=== PATIENT | male | born 1980 | race Caucasian/White ===

== ENCOUNTER 2017-12-30 15:34 | Outpatient (REF) | payer SELFPAY ==
[2018-01-05 12:41] LABS: Helicobacter pylori Ag, Feces Negative (NEGAT)
== END 2017-12-30 15:54 ==
LOC: NCHCN 15:34
PROVIDERS: PCP Family Medicine; Visit Provider Family Medicine
DX: K21.9 Gastro-esophageal reflux disease without esophagitis (principal)
CPT/HCPCS: 87338

== ENCOUNTER 2018-02-17 06:56 | Emergency (ER) | payer OTHER, SELFPAY ==
[2018-02-17 07:05] VITALS: BP 163/80; PULSE 85; RESP 16; TEMP 37.1; O2SAT 97
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
[2018-02-17] MEDS: Lidocaine 5% Patch 1 PATCH TP (07:17)
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
[2018-02-17] MEDS: Dexamethasone 4 MG TAB 12 MG PO (07:24)
[2018-02-17] MEDS: Ketorolac 30 MG/ML VIAL IM (07:24)
[2018-02-17 07:26] VITALS: BP 135/70; PULSE 72; RESP 12; TEMP 36.8; O2SAT 99
== END 2018-02-17 07:29 | disposition home or self-care (01) ==
PROVIDERS: Emergency Provider Student in an Organized Health Care Education/Training Program; PCP Family Medicine
DX: M62.830 Muscle spasm of back (principal); I10 Essential (primary) hypertension; E11.9 Type 2 diabetes mellitus without complications; Z79.84 Long term (current) use of oral hypoglycemic drugs
CPT/HCPCS: 96372; 99284; J1885; J8540

== ENCOUNTER 2018-04-09 18:16 | Outpatient (REF) | payer OTHER, SELFPAY ==
[2018-04-09 18:50] LABS: HGB 15.3 g/dL (13.5-17.5); Mean Corp. HGB Concentration 33.3 g/dL (32.0-36.0); Mean Corpuscular Hemoglobin 29.5 pg (27.0-33.0); Mean Corpuscular Volume 88.6 fL (80-95); Mean Platelet Volume 12.1 fL (8.0-11.0); Platelet Count 130 x1000/uL (130-400); RBC 5.19 m/cumm (4.50-6.00); RBC Distribution Width 13.3 % (11.8-14.1); White Blood Cell Count 6.47 k/cumm (4.4-10.8)
[2018-04-09 19:03] LABS: ALT 66 U/L (12-78); AST 22 U/L (15-37); Albumin 3.7 g/dL (3.4-5.0); Alkaline Phosphatase 73 U/L (46-116); Anion Gap 13.3 mmol/L (3-11); BUN 19 mg/dL (7-18); Bilirubin, Total 0.3 mg/dL (0.2-1.0); CO2 24.7 mmol/L (21.0-32.0); CREATININE 1.15 mg/dL (0.70-1.30); Calcium 8.5 mg/dL (8.5-10.1); Chloride 104 mmol/L (98-107); Glucose 156 mg/dL (70-100); Potassium 3.1 mmol/L (3.5-5.1); Sodium 142 mmol/L (136-145); Total Protein 6.4 g/dL (6.4-8.2); Uric Acid 6.9 mg/dL (3.5-7.2)
== END 2018-04-09 18:36 ==
LOC: NCHCN 18:16
PROVIDERS: PCP Family Medicine; Visit Provider Family Medicine
DX: D69.6 Thrombocytopenia, unspecified (principal); I10 Essential (primary) hypertension; K76.0 Fatty (change of) liver, not elsewhere classified; R73.09 Other abnormal glucose; M10.9 Gout, unspecified
CPT/HCPCS: 80053; 85027; 84550

== ENCOUNTER 2019-01-12 19:31 | Emergency (ER) | payer OTHER, SELFPAY ==
[2019-01-12 19:57] VITALS: BP 162/110; PULSE 78; RESP 18; TEMP 36.9; O2SAT 95
[2019-01-12 21:15] LABS: Bilirubin Negative (Negative); Blood Negative (Negative); Clarity Clear (Clear); Glucose Negative (Negative); Ketones Negative (Negative); Leukocyte Esterase Negative (Negative); Nitrite Negative (Negative); Urobilinogen 0.2 EU/dL (Up TO 0.2); pH 6.5 (5-8)
--- NOTE | 2019-01-12 21:18 | W.ED.GENAD ---
Discharge Plan Disposition Patient Disposition: HOME Condition: Good Discharge Details Chief Complaint: Abd Prob Clinical Impression: Back pain, Abdominal pain, Ear pain, right Primary Care Provider: Ramez House ED Provider: Brady Toth Meds and New Rx's Prescriptions: Continued allopurinol 100 MG tablet 100 mg PO DAILY RF: 0 metformin 500 MG tablet extended release 24hr 500 mg PO DAILY RF: 0 amlodipine 5 mg tablet 5 mg PO DAILY RF: 0 Discharge Instructions Additional Instructions: Your work-up tonight reveals a normal urinalysis, normal laboratory studies, normal CT scan of the abdomen pelvis. A swab to test for herpes has been sent and is pending. Follow-up with primary care as planned next week. Return to ED for high fever, vomiting, worsening pain, neurologic changes, other concerns or problems. Referrals: Ramez House [Primary Care Provider] - Discharge Data Discharge Date/Time-TO BE ENTERED AT DEPARTURE: 01/12/19 23:55 Medical Decision Making Patient presenting with multiple complaints of. No evidence of URI or ear infection. Abdomen has some tenderness in the left lower quadrant suprapubic area. Consider diverticulitis given his complaint of back pain as well although I think this is musculoskeletal. Penile lesions are somewhat painful. Given the description of them coming and going in the grouping suspect herpes. I did obtain specimen for PCR testing. IV is established and Toradol given for his pain. Laboratory studies obtained. CT scan of the abdomen pelvis done. Patient has normal white count. Chemistries are fine. Liver function normal. Lipase normal. Urinalysis completely negative. CT scan of the abdomen pelvis is normal. There is no evidence of kidney or ureteral stones. No evidence of diverticulitis. No evidence of appendicitis. Patient does report back pain and myalgias seem better with the Toradol. He has follow-up with primary care next week. He is asked to keep this appointment. May use ibuprofen or Tylenol in the meantime. Return to ED if he develops high fever, worsening pain, vomiting, other concerns or problems. Lab Data Lab results reviewed: Yes I reviewed the patient's lab results. HPI General Mode of arrival: ambulatory. Date/Time Provider Initiated Documentation: 01/12/19 21:13. Limitations to Documentation: no limitations. Information obtained by: patient and RN notes reviewed. HPI Narrative: Patient presents to ED with multiple complaints. He reports right ear pain for about a day. He denies fever or other URI type symptoms. He also complains of low abdominal pain that started this morning. He continues through the day. He has decreased appetite but no nausea or vomiting. He had no difficulty urinating. He also complains of low back pain. This is worse with movement. He feels tight all over and achy. This is been present for a couple of days now. He also complains of a penile lesion which he thinks is just cut. He reports that it intermittently happens for over 10 years. Is not overly painful. He is never had it looked at before. It is not always present. Related Data Home Medications Medication Instructions Recorded Confirmed allopurinol 100 mg PO DAILY 05/07/15 01/12/19 metformin 500 mg PO DAILY 06/14/16 01/12/19 amlodipine 5 mg PO DAILY 01/12/19 01/12/19 Allergies Allergy/AdvReac Type Severity Reaction Status Date / Time No Known Allergies Allergy Unverified 01/12/19 20:11 General Stated Complaint: Abd Prob DESTINI: 3 Review of Systems Review of Systems Narrative: 01/17 Review of Systems completed and is negative except as stated above in HPI (Systems reviewed: Const, Eyes, ENT, Resp, CV, GI, , MSK, Skin, Neuro) [facility] Medical History Bipolar disorder (Chronic) Diabetes mellitus (Chronic) GERD (gastroesophageal reflux disease) (Chronic) Gout (Chronic) HTN (hypertension) (Chronic) Social History Smoking/Tobacco Use Status: Current every day Alcohol Intake: never Drug use: Occasionally Substance use type: marijuana Do you feel safe in your relationship?: Yes Exam Narrative Exam Narrative: Vitals: Afebrile here. Hypertensive otherwise normal vitals and pulse oximetry. Const: WDWN male in NAD. HEENT: NC/AT. Normal facial exam. TMs clear bilateral. OP clear. Eyes: Normal conjunctiva and sclera. Neck: Supple. Trachea midline. Lungs: Normal respiratory effort. Lungs are clear. Cor: RRR without murmur/gallop. Good radial pulses. GI: Soft and non-distended. Mild tenderness in the LLQ/suprapubic area. No guarding or rebound. : No inguinal adenopathy. No hernia. Penis with ulceration that looks like groupings of vesicles in the foreskin. No discharge. No penile swelling. No testicular or epididymal tenderness or swelling. Back: No CVAT. Mild tenderness low lumbar area. Neuro: A+O x 3. CN grossly in tact. Good strength and no focal deficit. Ext: No C/C/E. Skin: Warm and dry without rash. Course Vital Signs Vital signs: Vital Signs Temperature 98.4 F 01/12/19 19:57 Pulse 78 01/12/19 19:57 Respiratory Rate 18 01/12/19 19:57 Blood Pressure 162/110 H 01/12/19 19:57 Pulse Oximetry 95 01/12/19 19:57 Temperature 98.4 F 01/12/19 19:57 Temperature Source Temporal Artery Scan 01/12/19 19:57 Pulse 78 01/12/19 19:57 Respiratory Rate 18 01/12/19 19:57 Respiratory Effort 01/12/19 20:03 Blood Pressure 162/110 H 01/12/19 19:57 Blood Pressure Position Sitting 01/12/19 19:57 Pulse Oximetry 95 01/12/19 19:57 Oxygen Delivery Method Room Air 01/12/19 19:57 Oxygen Flow Rate 0 01/12/19 19:57 Lab/Test Results Lab/Test Results: Laboratory Tests Range/Units 01/12/19 19:20 Urine Color (Yellow) Yellow Urine Clarity (Clear) Clear Urine pH (5-8) 6.5 Ur Specific [place] (1.005-1.025) 1.020 Urine Protein (Negative) mg/dL Negative Urine Ketones (Negative) mg/dL Negative Urine Blood (Negative) Negative Urine Nitrite (Negative) Negative Urine Bilirubin (Negative) Negative Urine Urobilinogen (Up TO 0.2) EU/dL 0.2 Ur Leukocyte Esterase (Negative) Negative Urine Glucose (Negative) mg/dL Negative
[2019-01-12] MEDS: Omnipaque 350 MG/ML 100 ML BTL IJ (22:25)
--- NOTE | 2019-01-12 22:29 | DI.CT_ITS ---
EXAM: CT ABDOMEN PELVIS W CLINICAL HISTORY: low abdominal/back pain. TECHNIQUE: COMPARISON: CHEST FOR PULMONARY EMBOLUS from 04/19/2016 FINDINGS: CT examination of the abdomen and pelvis was performed with bolus infusion of 100 cc of Omnipaque 350 . Images obtained through the lung bases are unremarkable. Liver spleen and pancreas appear normal. Gallbladder and bile ducts are CT normal. Adrenals and kidneys appear normal with no evidence of u rinary tract calcification or obstruction. Abdominal aorta is of normal diameter and no major vascul ar abnormality is seen. No significant abdominal wall hernia seen. Appendix appears normal. No sarah dence of bowel obstruction or diverticulitis. IMPRESSION: Negative abdominal and pelvic CT.
[2019-01-12 22:43] LABS: Abs Immature Grans 0.01 k/cumm (0.0-0.09); Absolute Basophil Count 0.01 k/cumm (0.0-0.2); Absolute Eosinophil Count 0.12 k/cumm (0.0-0.7); Absolute Lymphocyte Count 0.92 k/cumm (1.2-3.4); Absolute Monocyte Count 0.77 k/cumm (0.11-0.7); Absolute Neutrophil Count 3.79 k/cumm (1.2-6.7); Basophils % 0.2; Eosinophils % 2.1; HCT 44.5 % (40.0-50.0); HGB 14.7 g/dL (13.5-17.5); Immature Grans % 0.2; Lymphocytes % 16.4; Mean Corpuscular Hemoglobin 28.9 pg (27.0-33.0); Mean Corpuscular Volume 87.6 fL (80-95); Mean Platelet Volume 10.6 fL (8.0-11.0); Monocytes % 13.7; Neutrophils % 67.4; RBC 5.08 m/cumm (4.50-6.00); RBC Distribution Width 12.7 % (11.8-14.1); White Blood Cell Count 5.62 k/cumm (4.4-10.8)
[2019-01-12 22:44] LABS: Platelet Count 119 x1000/uL (130-400)
[2019-01-12 23:04] LABS: ALT 33 U/L (16-63); AST 14 U/L (15-37); Albumin 3.7 g/dL (3.4-5.0); Alkaline Phosphatase 71 U/L (46-116); Anion Gap 8.6 mmol/L (3-11); BUN 13 mg/dL (7-18); Bilirubin, Total 0.6 mg/dL (0.2-1.0); CO2 26.4 mmol/L (21.0-32.0); CREATININE 1.01 mg/dL (0.70-1.30); Chloride 103 mmol/L (98-107); Glucose 104 mg/dL (70-100); Lipase 157 U/L (73-393); Potassium 3.9 mmol/L (3.5-5.1); Sodium 138 mmol/L (136-145); Total Protein 6.7 g/dL (6.4-8.2)
--- NOTE | 2019-01-12 23:16 | DI.VRAD_ITS ---
PROCEDURE INFORMATION: Exam: CT Abdomen And Pelvis With Contrast Exam date and time: 01/12/2019 9:52 PM Clinical history: 38 years old, male; Generalized; Patient HX: Low back pain and abdominal pain x weeks, worsening today. TECHNIQUE: Imaging protocol: Computed tomography of the abdomen and pelvis with intravenous contrast. Radiation optimization: All CT scans at this facility use at least one of these dose optimization techniques: automated exposure control; mA and/or kV adjustment per patient size (includes targeted exams where dose is matched to clinical indication); or iterative reconstruction. Contrast material: OMNIPAQUE 350; Contrast volume: 100 ml; Contrast route: IV; COMPARISON: CT RENAL COLIC WO CONTRAST 08/26/2015 9:47 AM FINDINGS: Liver: Normal. No mass. Gallbladder and bile ducts: Normal. No calcified stones. No ductal dilation. Pancreas: Normal. No ductal dilation. Spleen: Normal. No splenomegaly. Adrenals: Normal. No mass. Kidneys and ureters: Normal. No hydronephrosis. Stomach and bowel: Unremarkable. No obstruction. No mucosal thickening. Appendix: No evidence of appendicitis. Intraperitoneal space: Unremarkable. No free air. No significant fluid collection. Vasculature: Mild atherosclerosis. Lymph nodes: Unremarkable. No enlarged lymph nodes. Bladder: Unremarkable as visualized. Reproductive: Unremarkable as visualized. Bones/joints: Unremarkable. No acute fracture. Soft tissues: Unremarkable. IMPRESSION: No acute finding. Dictated and Authenticated by: Amina Payan MD. Ordering:MEE Abreu MD
[2019-01-12] MEDS: Lactated Ringers 1,000 ML 1000 ML IV (23:19)
[2019-01-12] MEDS: Ketorolac 30 MG/ML VIAL IVP (23:20)
[2019-01-14 14:47] LABS: HSV 1 DNA Result Negative; HSV 2 DNA Result POSITIVE; Specimen Description penile lesion
== END 2019-01-12 23:55 | disposition home or self-care (01) ==
PROVIDERS: Emergency Provider Emergency Medicine; PCP Family Medicine
DX: M54.5 Low back pain (principal); R10.30 Lower abdominal pain, unspecified; H92.01 Otalgia, right ear; N48.89 Other specified disorders of penis
CPT/HCPCS: 36415; 80053; 83690; 87529; 96361; 96374; 99285; 74177; 81003; 85025; 99284; J1885; J3490

== ENCOUNTER 2019-02-01 12:22 | Outpatient (REF) | payer OTHER, SELFPAY ==
[2019-02-01 13:22] LABS: Albumin 4.1 g/dL (3.4-5.0); Calcium 8.5 mg/dL (8.5-10.1)
[2019-02-03 06:20] LABS: Vitamin D 25 Total 15.6 ng/ml (30-100)
== END 2019-02-01 12:42 ==
LOC: NCHCN 12:22
PROVIDERS: PCP Family Medicine; Visit Provider Family Medicine
DX: E83.51 Hypocalcemia (principal)
CPT/HCPCS: 82306; 82040; 82310

== ENCOUNTER 2019-05-15 11:59 | Emergency (ER) | payer OTHER, SELFPAY ==
[2019-05-15 12:08] VITALS: BP 147/83; PULSE 68; RESP 18; TEMP 36.3; O2SAT 97
[2019-05-15 12:31] LABS: Bilirubin Negative (Negative); Blood Negative (Negative); Clarity Clear (Clear); Glucose Negative (Negative); Ketones Negative (Negative); Leukocyte Esterase Negative (Negative); Nitrite Negative (Negative); Specific Gravity 1.025 (1.005-1.025); Urobilinogen 0.2 EU/dL (Up TO 0.2); pH 5.5 (5-8)
[2019-05-15 12:46] VITALS: BP 156/86; PULSE 65; RESP 16; TEMP 36.5; O2SAT 95
--- NOTE | 2019-05-15 13:18 | ED.GENADUL_ITS ---
Discharge Plan Disposition Patient Disposition: HOME Condition: Stable Discharge Details Chief Complaint: Urinary Clinical Impression: Urinary frequency Primary Care Provider: Ramez House ED Provider: Rosa Yi Home Meds and New Rx's Prescriptions: Continued allopurinol 100 MG tablet 100 mg PO DAILY RF: 0 metformin 500 MG tablet extended release 24hr 500 mg PO DAILY RF: 0 amlodipine 5 mg tablet 5 mg PO DAILY RF: 0 Discharge Instructions Instructions: [employer]eg[employer] Exercises for Men (GEN) Additional Instructions: Drink plenty of fluids. Follow-up with your primary care doctor in 1 week for reevaluation as needed. Follow-up with urology Dr. Day if symptoms do not improve or worsen. Return to the emergency department with any worsening or new concerning symptoms. Referrals: Jimbo Day MD [ [facility] STAFF PHYSICIAN] - Discharge Data Discharge Physician: Rosa Yi Medical Decision Making 38-year-old male who presents with urinary frequency since this morning. He states he has had this issue before which was associated with alcohol use. He states he has not drank alcohol anytime recently. He denies any dysuria, hematuria, fever, vomiting, abdominal or back pain. He is sexually active with his and does not use protection and denies any known exposure to STDs. Patient had been seen here a few months back and diagnosed with herpes at that time and states this resolved with treatment. He denies any genital lesions at this time. He states he does take metformin for prediabetes or diabetes but does not check his sugar regularly. He states he was started on this a few years back by his PCP Dr. House. He does admit to polyuria at times. Patient appears nontoxic. His abdomen is soft and nontender. Normal exam. No CVA tenderness. Urinalysis negative. History and presentation not consistent with kidney stone, STD, prostatitis, UTI, epididymitis. Patient states that he has thought he has had bladder spasms in the past and discussed that this is possible. Also obtained a fingerstick glucose which was 92. Patient feels good to go home. He is advised to drink plenty of fluids and to follow-up with urology if symptoms do not improve or worsen. He is advised to return here with any concerns. Medical Records Medical records reviewed: Yes I reviewed the patient's medical records. Lab Data Lab results reviewed: Yes I reviewed the patient's lab results. Labs: Laboratory Tests Range/Units 05/15/19 12:24 Urine Color (Yellow) Yellow Urine Clarity (Clear) Clear Urine pH (5-8) 5.5 Ur Specific [place] (1.005-1.025) 1.025 Urine Protein (Negative) mg/dL Negative Urine Ketones (Negative) mg/dL Negative Urine Blood (Negative) Negative Urine Nitrite (Negative) Negative Urine Bilirubin (Negative) Negative Urine Urobilinogen (Up TO 0.2) EU/dL 0.2 Ur Leukocyte Esterase (Negative) Negative Urine Glucose (Negative) mg/dL Negative HPI General Mode of arrival: ambulatory . Date/Time Provider Initiated Documentation: 05/15/19 12:11 . Limitations to Documentation: no limitations . Information obtained by: patient . History of Present Illness 38 year old M presents to the emergency department with the chief complaint of Urinary frequency, and is localized to the genitals. Patient reports no radiation. Patient started experiencing this hour(s) (Since this morning) and it has been intermittent. No relieving factors improve symptom(s), No exacerbating factors reported . Patient notes denies fever/chills, headaches, loss of appetite, malaise, nausea/vomiting and shortness of breath. Patient did receive the following treatments prior to arrival, none Related Data Home Medications Medication Instructions Recorded Confirmed allopurinol 100 mg PO DAILY 05/07/15 05/15/19 metformin 500 mg PO DAILY 06/14/16 05/15/19 amlodipine 5 mg PO DAILY 01/12/19 05/15/19 Allergies Allergy/AdvReac Type Severity Reaction Status Date / Time No Known Allergies Allergy Unverified 05/15/19 12:15 General Stated Complaint: Urinary DESTINI: 3 Review of Systems All systems reviewed & are unremarkable except as noted in HPI and below Constitutional Constitutional: Reports as per HPI, Denies chills and Denies fever(s) Eyes Eyes: Denies blurry vision ENT Ears, Nose, Mouth, and Throat: Denies dizziness, Denies sore throat and Denies throat swelling Cardiovascular Cardiovascular: Denies chest pain and Denies dyspnea Respiratory Respiratory: Denies cough and Denies dyspnea Gastrointestinal Gastrointestinal: Denies abdominal pain, Denies diarrhea and Denies vomiting Genitourinary Genitourinary: Denies hematuria, Denies genital pain, Denies dysuria, Denies flank pain, Denies penile discharge, Denies scrotal swelling, Denies testicular mass, Denies testicular pain and Reports urinary frequency Musculoskeletal Musculoskeletal: Denies back pain and Denies numbness Integumentary/Breasts Skin/Breast: Denies lesions and Denies rash Neurologic Neurologic: Denies dizziness, Denies focal weakness and Denies numbness Allergic/Immunologic Allergic/Immunologic: Denies throat swelling [facility] Medical History Bipolar disorder (Chronic) Diabetes mellitus (Chronic) GERD (gastroesophageal reflux disease) (Chronic) Gout (Chronic) HTN (hypertension) (Chronic) Social History Smoking/Tobacco Use Status: Current every day Tobacco Type: cigarettes Alcohol Intake: never Drug use: Occasionally Substance use type: marijuana Do you feel safe in your relationship?: Yes Exam Const General: cooperative, healthy appearing and no acute distress HENMT Head: normal to inspection Face and sinus: normal facial exam Eyes General: appearance normal, both eyes and all related structures EOM: EOM intact bilaterally Neck Neck: normal visual inspection and No submandibular swelling Lymphatic: no lymphadenopathy noted Chest Chest: normal inspection of the chest and no tenderness Resp Effort & Inspection: normal respiratory effort and able to speak in complete sentences Auscultation: clear to auscultation bilaterally Cardio Rate: regular rate Rhythm: regular rhythm GI Inspection: normal to inspection Palpation: soft, not firm, not rigid and nontender Auscultation: normal bowel sounds Male General Exam: Yes normal external exam Penis: normal penis Scrotum: scrotum normal Testes: no testicular mass, no testicular swelling and no testicular tenderness Skin General skin exam: no rashes or lesions noted Neuro General: alert, awake and oriented x3 Cognition: normal cognition Speech: speech normal Motor: muscle tone normal throughout Sensory Exam: no sensory deficits noted Extrem General: normal to inspection, full ROM, normal capillary refill, no calf tenderness bilaterally and no edema Psych Appearance: grossly normal Mental Status: mental status grossly normal Speech and Movement: speech and movement normal Affect: normal affect Course Vital Signs Vital signs: Vital Signs Temperature 97.3 F L 05/15/19 12:08 Pulse 68 05/15/19 12:08 Respiratory Rate 18 05/15/19 12:08 Blood Pressure 147/83 H 05/15/19 12:08 Pulse Oximetry 97 05/15/19 12:08 Temperature 97.7 F 05/15/19 12:46 Temperature Source Skin 05/15/19 12:46 Pulse 65 05/15/19 12:46 Pulse Rhythm Regular 05/15/19 12:46 Pulse Strength Normal 05/15/19 12:46 Respiratory Rate 16 05/15/19 12:46 Respiratory Effort 05/15/19 12:46 Respiratory Depth Normal 05/15/19 12:46 Respiratory Pattern Normal 05/15/19 12:46 Blood Pressure 156/86 H 05/15/19 12:46 Blood Pressure Mean 109 05/15/19 12:46 Blood Pressure Position Supine 05/15/19 12:46 Pulse Oximetry 95 05/15/19 12:46 Oxygen Delivery Method Room Air 05/15/19 12:46 Oxygen Flow Rate 0 05/15/19 12:46 Pain Level 3 05/15/19 12:08 Lab/Test Results Lab/Test Results: Laboratory Tests Range/Units 05/15/19 12:24 Urine Color (Yellow) Yellow Urine Clarity (Clear) Clear Urine pH (5-8) 5.5 Ur Specific [place] (1.005-1.025) 1.025 Urine Protein (Negative) mg/dL Negative Urine Ketones (Negative) mg/dL Negative Urine Blood (Negative) Negative Urine Nitrite (Negative) Negative Urine Bilirubin (Negative) Negative Urine Urobilinogen (Up TO 0.2) EU/dL 0.2 Ur Leukocyte Esterase (Negative) Negative Urine Glucose (Negative) mg/dL Negative
== END 2019-05-15 13:40 | disposition home or self-care (01) ==
PROVIDERS: Emergency Provider Physician Assistant; PCP Family Medicine
DX: R35.0 Frequency of micturition (principal); E11.9 Type 2 diabetes mellitus without complications; Z79.84 Long term (current) use of oral hypoglycemic drugs; I10 Essential (primary) hypertension
CPT/HCPCS: 36416; 82962; 99282; 81003; 99283

== ENCOUNTER 2019-06-03 10:44 | Outpatient (REF) | payer OTHER, SELFPAY ==
[2019-06-03 12:23] LABS: HCT 51.2 % (40.0-50.0); HGB 17.3 g/dL (13.5-17.5); Mean Corp. HGB Concentration 33.8 g/dL (32.0-36.0); Mean Corpuscular Hemoglobin 29.2 pg (27.0-33.0); Mean Corpuscular Volume 86.3 fL (80-95); Mean Platelet Volume 11.4 fL (8.0-11.0); Platelet Count 178 x1000/uL (130-400); RBC 5.93 m/cumm (4.50-6.00); RBC Distribution Width 12.9 % (11.8-14.1); White Blood Cell Count 10.47 k/cumm (4.4-10.8)
[2019-06-03 12:41] LABS: ALT 35 U/L (16-63); AST 13 U/L (15-37); Albumin 4.7 g/dL (3.4-5.0); Alkaline Phosphatase 83 U/L (46-116); Amylase 47 U/L (25-115); Anion Gap 10.9 mmol/L (3-11); BUN 16 mg/dL (7-18); Bilirubin, Total 0.7 mg/dL (0.2-1.0); CO2 29.1 mmol/L (21.0-32.0); CREATININE 1.12 mg/dL (0.70-1.30); Calcium 9.3 mg/dL (8.5-10.1); Chloride 99 mmol/L (98-107); Glucose 93 mg/dL (74-106); Lipase 137 U/L (73-393); Potassium 3.6 mmol/L (3.5-5.1); Sodium 139 mmol/L (136-145); Total Protein 7.5 g/dL (6.4-8.2)
== END 2019-06-03 11:04 ==
LOC: NCHCN 10:44
PROVIDERS: PCP Family Medicine; Visit Provider Nurse Practitioner Family
DX: R10.9 Unspecified abdominal pain (principal)
CPT/HCPCS: 80053; 83690; 85027; 82150

== ENCOUNTER 2019-06-03 13:27 | Outpatient (CLI) | payer OTHER, SELFPAY ==
--- NOTE | 2019-06-03 | DI.CT_ITS ---
EXAM: CT ABDOMEN PELVIS W CLINICAL HISTORY: ABD PAIN ACUTE, R10.9 TECHNIQUE: Post IV and oral contrast. COMPARISON: CT ABDOMEN PELVIS W from 01/12/2019 FINDINGS: The heart size is normal. The lung bases are clear. The liver shows mild fatty infiltration. The s pleen, gallbladder, pancreas, adrenals and kidneys appear normal. The prostate and urinary bladder ap pear normal. The appendix is normal. There is no small bowel dilatation. There is a normal quantity o f stool. There is no bowel thickening or inflammatory change. No free air or free fluid is seen. Ther e is no adenopathy. The aorta is normal in diameter. IMPRESSION: Negative CT of the abdomen and pelvis.
[2019-06-03] MEDS: Omnipaque 350 MG/ML 100 ML BTL IV (13:24)
[2019-06-03] MEDS: Omnipaque 350 MG/ML 100 ML BTL 50 ML PO (13:41)
== END 2019-06-03 13:47 ==
PROVIDERS: PCP Family Medicine; Visit Provider Nurse Practitioner Family
DX: R10.9 Unspecified abdominal pain (principal); K76.0 Fatty (change of) liver, not elsewhere classified
CPT/HCPCS: 74177; J3490

== ENCOUNTER 2019-08-19 09:26 | Outpatient (CLI) | payer OTHER, SELFPAY ==
--- NOTE | 2019-08-19 | DI.RAD_ITS ---
EXAM: XR CHEST 2V PA LATERAL CLINICAL HISTORY: ATYPICAL CHEST PAIN, R07.9, SMOKER, STERNAL PAIN TECHNIQUE: 2D digital imaging was performed. COMPARISON: CR PORTABLE CHEST ONE VIEW from 04/19/2016 FINDINGS: The heart is not enlarged. The lungs are clear and well expanded. No pleural effusion seen. Mediastin al contours appear intact. IMPRESSION: Normal chest
== END 2019-08-19 09:46 ==
PROVIDERS: PCP Family Medicine; Visit Provider Family Medicine
DX: R07.89 Other chest pain (principal); F17.210 Nicotine dependence, cigarettes, uncomplicated
CPT/HCPCS: 71046

== ENCOUNTER 2019-08-30 04:30 | Emergency (ER) | payer OTHER, SELFPAY ==
[2019-08-30 04:34] VITALS: BP 147/90; PULSE 93; RESP 16; TEMP 36.9; O2SAT 95
--- NOTE | 2019-08-30 04:44 | W.ED.GENAD ---
Discharge Plan Disposition Patient Disposition: HOME Condition: Stable Discharge Details Chief Complaint: RashLesion Clinical Impression: Contact dermatitis due to plant Primary Care Provider: Ramez House ED Provider: Adis Caceres Home Meds and New Rx's Prescriptions: New prednisone 20 mg tablet 40 mg PO DAILY 6 Days Qty: 12 RF: 0 Continued ziprasidone HCl 40 mg capsule 40 mg PO BID RF: 0 sildenafil [Viagra] 50 mg tablet 50 mg PO DAILY PRNRF: 0 metformin 500 mg tablet extended release 24hr 500 mg PO DAILY RF: 0 trazodone 100 mg tablet 100 mg PO QHS RF: 0 betamethasone valerate 0.1 % ointment 1 applic TP BID PRNRF: 0 allopurinol 100 MG tablet 100 mg PO DAILY RF: 0 amlodipine 5 mg tablet 5 mg PO DAILY RF: 0 Discharge Instructions Instructions: Dermatitis (ED) Additional Instructions: You have developed a plant dermatitis, possibly due to exposure to poison [place] or [place] lace. Please take prednisone as prescribed. May continue the use of Benadryl 25 to 50 mg as needed every 6 hours for itching. Return if you develop a fever, worsening of the rash, or any other acute concern. Medical Decision Making 39-year-old male who developed an itching, blistering type rash after pulling weeds in his garden that he believes may have been [place] weed/poison [place] lace. No difficulty with swallowing, change to breathing. His exam is otherwise reassuring. He has a plant dermatitis. Will treat with systemic steroids, Benadryl as needed. He understands homecare as well as return precautions. HPI General Mode of arrival: ambulatory. Date/Time Provider Initiated Documentation: 08/30/19 04:37. Limitations to Documentation: no limitations. Information obtained by: patient. History of Present Illness 39 year old M presents to the emergency department with the chief complaint of Itching rash primarily on arms, described as moderate, Quality is described as dull and constant, and is localized to the left, right, upper extremity and lower extremity. Patient reports no radiation. and it has been constant. No relieving factors improve symptom(s), No exacerbating factors reported . Patient did receive the following treatments prior to arrival, none Related Data Home Medications Medication Instructions Recorded Confirmed allopurinol 100 mg PO DAILY 05/07/15 08/30/19 amlodipine 5 mg PO DAILY 01/12/19 08/30/19 betamethasone valerate 0.1 % 1 applic TP BID PRN 05/19/19 08/30/19 topical ointment metformin 500 mg tablet,extended 500 mg PO DAILY 05/19/19 08/30/19 release 24hr sildenafil 50 mg tablet 50 mg PO DAILY PRN 05/19/19 trazodone 100 mg tablet 100 mg PO QHS 05/19/19 08/30/19 ziprasidone HCl 40 mg capsule 40 mg PO BID 05/19/19 08/30/19 prednisone 40 mg PO DAILY 6 Days #12 tab 08/30/19 Previous Rx's Medication Instructions Recorded prednisone 40 mg PO DAILY 6 Days #12 tab 08/30/19 Allergies Allergy/AdvReac Type Severity Reaction Status Date / Time lamotrigine [From Lamictal] Allergy Unverified 05/19/19 12:40 pioglitazone Allergy Unverified 05/19/19 12:40 sertraline [From Zoloft] Allergy Unverified 05/19/19 12:40 General Stated Complaint: RashLesion DESTINI: 4 Review of Systems Narrative: 6 systems reviewed and otherwise negative [facility] Medical History Bilateral knee pain (Acute) Bipolar disorder (Chronic) Chronic low back pain (Acute) Diabetes mellitus (Chronic) GERD (gastroesophageal reflux disease) (Chronic) Gout (Chronic) Hemorrhoids (Acute) HTN (hypertension) (Chronic) Hypocalcemia (Acute) Metabolic syndrome (Acute) Nephrolithiasis (Chronic) Psoriasis (Chronic) Recurrent genital herpes simplex (Acute) Thrombocytopenia (Chronic) Social History Smoking/Tobacco Use Status: Current every day Tobacco Type: cigarettes Alcohol Intake: never Drug use: Occasionally Substance use type: marijuana Do you feel safe in your relationship?: Yes Exam Narrative Exam Narrative: GEN: awake, alert, oriented 3. Pleasant, well groomed, interactive. HEAD: Normocephalic, atraumatic EYES: PERRL, EOMI NECK: Full ROM, no SHARONDA, no menigismus CHEST/RESP: Nontender, clear to auscultation bilateral, no wheeze/rhonchi/rales CARDIOVASCULAR: RRR, no murmur, rub charlie. 2+ Rad pulse bilateral EXT: Full ROM, no edema. Skin: There is a raised, erythematous, blanching rash with vesicular blistering Neuro: Grossly normal neurologic exam, conversant, interactive. Psych: Speech fluent, thoughts congruent, affect normal Course Vital Signs Vital signs: Vital Signs Temperature 36.9 C 08/30/19 04:34 Pulse 93 H 08/30/19 04:34 Respiratory Rate 16 08/30/19 04:34 Blood Pressure 147/90 H 08/30/19 04:34 Pulse Oximetry 95 08/30/19 04:34 Temperature 36.9 C 08/30/19 04:34 Temperature Source Skin 08/30/19 04:34 Pulse 93 H 08/30/19 04:34 Respiratory Rate 16 08/30/19 04:34 Blood Pressure 147/90 H 08/30/19 04:34 Blood Pressure Position Sitting 08/30/19 04:34 Pulse Oximetry 95 08/30/19 04:34 Oxygen Delivery Method Room Air 08/30/19 04:34 Oxygen Flow Rate 0 08/30/19 04:34
[2019-08-30] MEDS: diphenhydrAMINE 25 MG CAP 50 MG PO (04:49)
[2019-08-30] MEDS: predniSONE 20 MG TAB 60 MG PO (04:50)
== END 2019-08-30 04:55 | disposition home or self-care (01) ==
PROVIDERS: Emergency Provider Emergency Medicine; PCP Family Medicine
DX: L23.7 Allergic contact dermatitis due to plants, except food (principal); E11.9 Type 2 diabetes mellitus without complications; Z79.84 Long term (current) use of oral hypoglycemic drugs; I10 Essential (primary) hypertension
CPT/HCPCS: 99283; J7512

== ENCOUNTER 2020-10-12 18:58 | Outpatient (REF) | payer OTHER, SELFPAY ==
[2020-10-12 19:11] LABS: HCT 48.7 % (40.0-50.0); HGB 16.3 g/dL (13.5-17.5); MCH 29.7 pg (27.0-33.0); MCHC 33.5 % (32.0-36.0); MCV 88.9 fL (80-95); MPV 11.1 fL (8.0-11.0); Platelet Count 148 10^3/uL (130-400); RBC 5.48 10^6/uL (4.36-5.78); RDW 12.2 % (11.8-14.1); WBC 5.87 10^3/uL (4.4-10.8)
[2020-10-12 19:27] LABS: ALT 82 U/L (16-63); AST 36 U/L (15-37); Albumin 4.2 g/dL (3.4-5.0); Alkaline Phosphatase 70 U/L (46-116); Anion Gap 9.7 mmol/L (3-11); BUN 12 mg/dL (7-18); Bilirubin, Total 0.5 mg/dL (0.2-1.0); CO2 30.3 mmol/L (21.0-32.0); CREATININE 1.1 mg/dL (0.70-1.30); Calcium 9.2 mg/dL (8.5-10.1); Chloride 103 mmol/L (98-107); Glucose 110 mg/dL (74-106); Potassium 3.3 mmol/L (3.5-5.1); Sodium 143 mmol/L (136-145); Uric Acid 7.4 mg/dL (3.5-7.2)
[2020-10-12 19:41] LABS: Hemoglobin A1C 5.6 % (<5.7)
[2020-10-12 19:43] LABS: Cholesterol 181 mg/dL (<200); HDL Cholesterol 29 mg/dL (40-60); Triglyceride 461 mg/dL (<150)
[2020-10-12 19:49] LABS: Vitamin D 25 Total 22.8 ng/mL (30-100)
[2020-10-12 20:12] LABS: LDL CHOLESTEROL 97 mg/dL (<100)
== END 2020-10-12 18:59 | disposition home or self-care (01) ==
LOC: NCHCN 18:58
PROVIDERS: PCP Family Medicine; Visit Provider Family Medicine
DX: Z00.00 Encounter for general adult medical examination without abnormal findings (principal); R73.03 Prediabetes; M10.9 Gout, unspecified; K76.0 Fatty (change of) liver, not elsewhere classified; I10 Essential (primary) hypertension; E55.9 Vitamin D deficiency, unspecified
CPT/HCPCS: 80053; 80061; 82306; 83721; 85027; 83036; 84550

== ENCOUNTER 2021-05-27 23:16 | Emergency (ER) | payer OTHER, SELFPAY ==
[2021-05-27 23:28] VITALS: BP 143/65; PULSE 68; RESP 18; TEMP 36.5; O2SAT 98
--- NOTE | 2021-05-27 23:30 | DI.RAD_ITS ---
Exam(s) XR FINGER RT LITTLE EXAM: XR FINGER RT LITTLE CLINICAL HISTORY: trauma and laceration to distal tip of 5th digit TECHNIQUE: COMPARISON: No exams were available for comparison FINDINGS: Three views were obtained. There is a mildly displaced mildly comminuted fracture of the tuft of the distal phalanx of the little finger. There is an associated soft tissue defect. No additional frac ture seen. IMPRESSION: RADIATION DOSE DELIVERED: Total DLP
--- NOTE | 2021-05-28 00:10 | W.ED.GENAD ---
Discharge Plan Disposition Patient Disposition: HOME Condition: Good Discharge Details Clinical Impression: Laceration of finger of right hand Primary Care Provider: [facility] ED Provider: Kael Rivero Home Meds and New Rx's Prescriptions: New cephalexin 500 mg capsule 500 mg PO QID 7 Days Qty: 28 0RF Continued ziprasidone HCl 40 mg capsule 40 mg PO BID 0RF sildenafil [Viagra] 50 mg tablet 50 mg PO DAILY PRN0RF metformin 500 mg tablet extended release 24hr 500 mg PO DAILY 0RF trazodone 100 mg tablet 100 mg PO QHS 0RF betamethasone valerate 0.1 % ointment 1 applic TP BID PRN0RF allopurinol 100 MG tablet 100 mg PO DAILY 0RF amlodipine 5 mg tablet 5 mg PO DAILY 0RF Discharge Instructions Instructions: Care For Your Stitches (ED) Additional Instructions: Please leave the dressing on for 24 hours, then you may remove and begin cleaning the wound at least twice a day with soap and water. Continue to apply antibiotic ointment. Do not directly soak the area. Watch for any signs of infection and return if any increasing redness, swelling, pain, drainage. Please take the antibiotic as directed to help prevent any infection. Please return in the next 7 to 10 days for removal of the sutures. If you notice any worsening of your symptoms, or any new symptoms such as vomiting, diarrhea, fever, chills, shortness of breath, chest pain, numbness, weakness, or fainting , please return immediately to the emergency department for reevaluation. Please follow up with your primary care provider as soon as possible for reassessment and reevaluation. As always, it was a pleasure participating in your medical care today. Referrals: [facility] [Primary Care Provider] - Medical Decision Making 40-year-old male who is right-hand dominant, who was tetanus was updated in 2013, presents today for evaluation of laceration to his right finger. 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 Because notable laceration to the palmar aspect of the tip of his fifth finger. He immediately came for further evaluation. He denies any significant numbness or tingling or weakness. He denies any trauma to the rest of the hand. He did wash it with water prior to arrival. No other complaints at this time. No other modifying factors. Patient demonstrates a 1.5 cm linear laceration of the distal tip of the fifth digit. Patient demonstrates excellent flexion and extension, no evidence of strength limitation, tendon damage, or neurovascular compromise. The area was anesthetized with lidocaine, it was then cleaned vigorously scrubbed. 4 simple interrupted sutures were placed without complication. Splint was then applied. There is a questionable small fracture over the lateral aspect. Of concern for this we will give Keflex for infection control. Discussed red flags which return including signs of infection. Tetanus was updated here. I have extensively reviewed the treatment plan and discharge instructions with the patient. I have addressed all patient concerns at this time. The patient was made aware of what symptoms to monitor for that would warrant a return to the emergency department. Discussed the plan with the patient, they demonstrate verbal understanding and agreement with our assessment and plan at this time. The documentation in this chart was dictated using [employer] dictation software. Please excuse any dictation errors. FINDINGS: Bones/joints: Comminuted fracture of the tuft of the left 5th finger. No evidence of dislocation. Soft tissues: Soft tissue defect and soft tissue swelling of the distal left 5th finger. IMPRESSION: 1. Comminuted fracture of the tuft of the left 5th finger. 2. Soft tissue defect and soft tissue swelling of the distal left 5th finger. Thank you for allowing us to participate in the care of your patient. Dictated and Authenticated by: Jonathan Dong MD 05/28/2021 12:56 AM Eastern Time ([place] & [place]) HPI General Date/Time Provider Initiated Documentation: 05/27/21 23:35. HPI Narrative: 40-year-old male who is right-hand dominant, who was tetanus was updated in 2012, presents today for evaluation of laceration to his right finger. 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 Because notable laceration to the palmar aspect of the tip of his fifth finger. He immediately came for further evaluation. He denies any significant numbness or tingling or weakness. He denies any trauma to the rest of the hand. He did wash it with water prior to arrival. No other complaints at this time. No other modifying factors. Related Data Home Medications Medication Instructions Recorded Confirmed allopurinol 100 mg tablet 100 mg PO DAILY 05/07/15 08/30/19 amlodipine 5 mg tablet 5 mg PO DAILY 01/12/19 08/30/19 betamethasone valerate 0.1 % 1 applic TP BID PRN 05/19/19 08/30/19 topical ointment metformin 500 mg tablet,extended 500 mg PO DAILY 05/19/19 08/30/19 release 24hr sildenafil 50 mg tablet (Viagra) 50 mg PO DAILY PRN 05/19/19 trazodone 100 mg tablet 100 mg PO QHS 05/19/19 08/30/19 ziprasidone HCl 40 mg capsule 40 mg PO BID 05/19/19 08/30/19 cephalexin 500 mg capsule 500 mg PO QID 7 Days #28 cap 05/28/21 Previous Rx's Medication Instructions Recorded cephalexin 500 mg capsule 500 mg PO QID 7 Days #28 cap 05/28/21 Allergies Allergy/AdvReac Type Severity Reaction Status Date / Time lamotrigine [From Lamictal] Allergy Unverified 05/19/19 12:40 pioglitazone Allergy Unverified 05/19/19 12:40 sertraline [From Zoloft] Allergy Unverified 05/19/19 12:40 General Stated Complaint: Laceration DESTINI: 4 Review of Systems All systems reviewed & are unremarkable except as noted in HPI and below PFSH All Active Problems Laceration of finger of right hand (Acute) Urinary frequency (Acute) Gout (Chronic) HTN (hypertension) (Chronic) GERD (gastroesophageal reflux disease) (Chronic) Diabetes mellitus (Chronic) Bipolar disorder (Chronic) Medical History Bilateral knee pain Chronic low back pain Hemorrhoids Hypocalcemia Metabolic syndrome Nephrolithiasis Psoriasis Recurrent genital herpes simplex Thrombocytopenia Social History Smoking/Tobacco Use Status: Current every day Tobacco Type: cigarettes Smoking risk assessment performed?: Yes Alcohol Intake: never Drug use: Occasionally Substance use type: marijuana Do you feel safe at home: Yes Do you feel safe in your relationship?: Yes Exam Narrative Exam Narrative: 1.Const: Well-nourished, Well-developed, appearing stated age 2.Eyes: PERRL, no conjunctival injection, and symmetrical lids. 3.ENT: Atraumatic external nose and ears. Moist MM. Neck: Symmetric, trachea midline, No thyromegaly. 4.CVS: +S1/S2, No murmurs or gallops. Peripheral pulses 2+ and equal in all extremities. Brisk capillary refill in all extremities. 5.RESP: Unlabored respiratory effort. Clear to auscultation bilaterally. No wheezes rales or rhonchi 6.GI: Soft, Nontender/Nondistended, No hepatosplenomegaly. No guarding or rebound. 7.MSK: Patient right fifth digit demonstrates a 1.5 cm laceration to the palmar aspect of the distal tip of the fifth digit. No evidence of deep tissue involvement. Patient demonstrates excellent flexion and extension even with isolation of the proximal interphalangeal joint and the distal and inter phalangeal joint. Patient demonstrates good point two-point discrimination at the distal tip of fifth digit. With no diminishment of sensation. 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 Sensation grossly intact, no focal neurologic deficits. 10.Psych: (AAO) x3. Appropriate mood and affect Course Vital Signs Vital signs: Vital Signs Temperature 36.5 C 05/27/21 23:28 Pulse 68 05/27/21 23:28 Respiratory Rate 18 05/27/21 23:28 Blood Pressure 143/65 H 05/27/21 23:28 Pulse Oximetry 98 05/27/21 23:28 Temperature 36.5 C 05/27/21 23:28 Temperature Source Tympanic 05/27/21 23:28 Pulse 68 05/27/21 23:28 Respiratory Rate 18 05/27/21 23:28 Respiratory Effort 05/27/21 23:31 Blood Pressure 143/65 H 05/27/21 23:28 Blood Pressure Position Supine 05/27/21 23:28 Pulse Oximetry 98 05/27/21 23:28 Oxygen Delivery Method Room Air 05/27/21 23:28 Oxygen Flow Rate 0 05/27/21 23:28 Pain Level 8 05/27/21 23:28 Procedures Laceration Laceration 1: Site: hand Side (If applicable): right Size (cm): 1.5 Description: linear Depth: simple, single layer Local Anesthetic: Lidocaine 1% Amount of anesthesia used (mL): 3 Pre-repair: wound explored, irrigated extensively and deep structures intact Skin layer closed with: nylon Size (cm): 5-0 Number of sutures: 4 Technique: simple, interrupted
[2021-05-28] MEDS: Cephalexin 500 MG CAP, 4 CAPS/BTL PO (00:49)
--- NOTE | 2021-05-28 00:56 | DI.VRAD_ITS ---
PROCEDURE INFORMATION: Exam: XR Left Finger(s) Exam date and time: 05/27/2021 11:36 PM Age: 40 years old Clinical indication: Injury or trauma; Other: Work related; Right; Little finger; Injury date: 05/27/21; Injury details: Trauma and laceration to distal tip of 5th digit TECHNIQUE: Imaging protocol: XR Left fingers. Views: Minimum 2 views. COMPARISON: No relevant prior studies available. FINDINGS: Bones/joints: Comminuted fracture of the tuft of the left 5th finger. No evidence of dislocation. Soft tissues: Soft tissue defect and soft tissue swelling of the distal left 5th finger. IMPRESSION: 1. Comminuted fracture of the tuft of the left 5th finger. 2. Soft tissue defect and soft tissue swelling of the distal left 5th finger. Dictated and Authenticated by: Jonathan Dong MD. Ordering:THERON Scruggs MD
== END 2021-05-28 00:54 | disposition home or self-care (01) ==
PROVIDERS: Emergency Provider Student in an Organized Health Care Education/Training Program; PCP Family Medicine
DX: S61.216A Laceration without foreign body of right little finger without damage to nail, initial encounter (principal); W26.2XXA Contact with edge of stiff paper, initial encounter; Y99.0 Civilian activity done for income or pay
CPT/HCPCS: 12001; 29130; 99283; 73140

== ENCOUNTER 2021-06-06 18:33 | Emergency (ER) | payer SELFPAY ==
[2021-06-06 18:41] VITALS: BP 123/67; PULSE 71; RESP 20; TEMP 36.8; O2SAT 97
--- NOTE | 2021-06-06 19:10 | ED.GENADUL_ITS ---
Discharge Plan Disposition Patient Disposition: HOME Condition: Stable Discharge Details Clinical Impression: Visit for suture removal Primary Care Provider: [facility] ED Provider: Nayely Urbina Home Meds and New Rx's Prescriptions: Continued ziprasidone HCl 40 mg capsule 40 mg PO BID 0RF sildenafil [Viagra] 50 mg tablet 50 mg PO DAILY PRN0RF metformin 500 mg tablet extended release 24hr 500 mg PO DAILY 0RF trazodone 100 mg tablet 100 mg PO QHS 0RF betamethasone valerate 0.1 % ointment 1 applic TP BID PRN0RF allopurinol 100 MG tablet 100 mg PO DAILY 0RF amlodipine 5 mg tablet 5 mg PO DAILY 0RF Discharge Instructions Instructions: Steristrips (ED) Additional Instructions: The Steri-Strips will stay in place for approximately 4 days. You will see that they will start to curl up on the end table fall off on their own. Clean and dry, keep covered while at work with a Band-Aid or similar. Do not scrib or pick at steri-strips Follow up with primary care provider in 3-5 days. Return to ED sooner if any worsening or concerns. Increase oral fluids. Return for any signs of infection or concerns. Referrals: [facility] [Primary Care Provider] - Return if symptoms worsen Medical Decision Making 40-year-old male presents to the ER for chief complaint of suture removal. Patient has approximately 4 sutures placed to the distal tip of his right little finger 9 days ago. Patient denies any signs of infection or red streaks. Wound is well approximated however there is large scab formation. Patient did take cephalexin initially. I am having patient soak his finger in sterile normal saline and hydrogen peroxide to assist in the scab removal prior to suture removal no signs of infection or drainage noted. Wound was soaked in hydrogen peroxide and sterile normal saline to remove scab and sutures. 4 sutures were removed with some difficulty. 3 Steri-Strips applied to laceration post removal. Instructed on home care and strict return instructions, verbalized understanding. This text was generated using [employer] system, please disregard any oddities of phrase or misspellings. HPI General Mode of arrival: ambulatory . Date/Time Provider Initiated Documentation: 06/06/21 18:56 . Limitations to Documentation: no limitations . Information obtained by: patient, RN notes reviewed and old records reviewed . HPI Narrative: 40-year-old male presents to the ER for chief complaint of suture removal. Willie forrest has approximately 4 sutures placed to the distal tip of his right little finger 9 days ago. Patient denies any signs of infection or red streaks. Wound is well approximated however there is large scab formation. Patient did take cephalexin initially. I am having patient soak his finger in sterile normal saline and hydrogen peroxide to assist in the scab removal prior to suture removal no signs of infection or drainage noted. Related Data Home Medications Medication Instructions Recorded Confirmed allopurinol 100 mg tablet 100 mg PO DAILY 05/07/15 08/30/19 amlodipine 5 mg tablet 5 mg PO DAILY 01/12/19 08/30/19 betamethasone valerate 0.1 % 1 applic TP BID PRN 05/19/19 08/30/19 topical ointment metformin 500 mg tablet,extended 500 mg PO DAILY 05/19/19 08/30/19 release 24hr sildenafil 50 mg tablet (Viagra) 50 mg PO DAILY PRN 05/19/19 trazodone 100 mg tablet 100 mg PO QHS 05/19/19 08/30/19 ziprasidone HCl 40 mg capsule 40 mg PO BID 05/19/19 08/30/19 Allergies Allergy/AdvReac Type Severity Reaction Status Date / Time lamotrigine [From Lamictal] Allergy Unverified 05/19/19 12:40 pioglitazone Allergy Unverified 05/19/19 12:40 sertraline [From Zoloft] Allergy Unverified 05/19/19 12:40 General Stated Complaint: SutureRem DESTINI: 4 Review of Systems All systems reviewed & are unremarkable except as noted in HPI and below Integumentary/Breasts Skin/Breast: Reports wounds (Sutured laceration to right little finger) PFSH All Active Problems (Updated 06/06/21 @ 19:52 by Nayely Urbina) Laceration of finger of right hand (Acute) Visit for suture removal (Acute) Urinary frequency (Acute) Gout (Chronic) HTN (hypertension) (Chronic) GERD (gastroesophageal reflux disease) (Chronic) Diabetes mellitus (Chronic) Bipolar disorder (Chronic) Medical History (Updated 06/06/21 @ 19:52 by Nayely Urbina) Bilateral knee pain Chronic low back pain Hemorrhoids Hypocalcemia Metabolic syndrome Nephrolithiasis Psoriasis Recurrent genital herpes simplex Thrombocytopenia Social History Smoking/Tobacco Use Status: Current every day Tobacco Type: cigarettes Smoking risk assessment performed?: Yes Alcohol Intake: never Drug use: Occasionally Substance use type: marijuana Do you feel safe at home: Yes Do you feel safe in your relationship?: Yes Exam Extrem Hand/finger images: 1. Sutured laceration, with 4 simple interrupted sutures and large scab fo rmation noted. No surrounding erythema, drainage or red streaks or any signs of infection. Course Vital Signs Vital signs: Vital Signs Temperature 36.8 C 06/06/21 18:41 Pulse 71 06/06/21 18:41 Respiratory Rate 20 06/06/21 18:41 Blood Pressure 123/67 06/06/21 18:41 Pulse Oximetry 97 06/06/21 18:41 Temperature 36.8 C 06/06/21 18:41 Temperature Source Temporal Artery Scan 06/06/21 18:41 Pulse 71 06/06/21 18:41 Respiratory Rate 20 06/06/21 18:41 Respiratory Effort 06/06/21 18:49 Blood Pressure 123/67 06/06/21 18:41 Blood Pressure Position Sitting 06/06/21 18:41 Pulse Oximetry 97 06/06/21 18:41 Oxygen Delivery Method Room Air 06/06/21 18:41 Oxygen Flow Rate 0 06/06/21 18:41 Procedures Other Description: Suture removal-Soaked in Hydrogen peroxide and removed scab. 3 steri-strips applied. PAWSS Have you Been Recently Intoxicated or Drunk Within the Last 30 days?: No Have you Ever Experienced Previous Episodes of Alcohol Withdrawal?: No Have you ever Experienced Withdrawal Seizures?: No Have you ever Experienced Delirium Tremens(DT)s?: No Have you ever undergone Alcohol Rehabilitation Treatment (i.e, inpt ot outpatient treatment programs)?: No Have you ever Experienced Blackouts?: No Have you ever Combined Alcohol with other Downers within the last 90 days?: No Have you ever Combined Alcohol with any other Substance of Abuse during the last 90 days?: No Positive Blood Alcohol level on Presentation? [PCS.BAL]: No Evidence of Increased Autonomic Activity (i.e. HR>120, tremor, sweating, agitati on, nausea)?: No Result: 0
== END 2021-06-06 19:58 | disposition home or self-care (01) ==
PROVIDERS: Emergency Provider Registered Nurse Emergency; PCP Family Medicine
DX: S61.216D Laceration without foreign body of right little finger without damage to nail, subsequent encounter (principal); X58.XXXD Exposure to other specified factors, subsequent encounter; Z48.02 Encounter for removal of sutures

== ENCOUNTER 2021-10-28 18:50 | Outpatient (REF) | payer OTHER, SELFPAY ==
[2021-10-28 19:49] LABS: HCT 46.5 % (40.0-50.0); HGB 15.7 g/dL (13.5-17.5); MCH 29.9 pg (27.0-33.0); MCHC 33.8 % (32.0-36.0); MCV 89 fL (80-95); MPV 11.7 fL (8.0-11.0); Platelet Count 123 10^3/uL (130-400); RBC 5.25 10^6/uL (4.36-5.78); RDW 12.1 % (11.8-14.1); RDW-SD 39.5 fL; WBC 5.78 10^3/uL (4.4-10.8)
[2021-10-28 20:10] LABS: ALT 27 U/L (16-63); AST 12 U/L (15-37); Alkaline Phosphatase 70 U/L (46-116); BUN 20 mg/dL (7-18); Bilirubin, Total 0.4 mg/dL (0.2-1.0); CREATININE 1.1 mg/dL (0.70-1.30); Calcium 8.5 mg/dL (8.5-10.1); Chloride 106 mmol/L (98-107); Glucose 138 mg/dL (74-106); Potassium 3.9 mmol/L (3.5-5.1); Sodium 141 mmol/L (136-145); Total Protein 6.7 g/dL (6.4-8.2)
== END 2021-10-28 18:51 | disposition home or self-care (01) ==
LOC: NCHCN 18:50
PROVIDERS: PCP Family Medicine; Visit Provider Family Medicine
DX: E87.6 Hypokalemia (principal); D69.6 Thrombocytopenia, unspecified; E55.9 Vitamin D deficiency, unspecified
CPT/HCPCS: 80053; 82306; 85027

== ENCOUNTER 2022-10-08 21:44 | Outpatient (REF) | payer OTHER, SELFPAY ==
[2022-10-08 20:23] LABS: HCT 48.6 % (40.0-50.0); HGB 16.3 g/dL (13.5-17.5); MCH 29.5 pg (27.0-33.0); MCHC 33.5 % (32.0-36.0); MCV 88 fL (80-95); MPV 10.9 fL (8.0-11.0); Platelet Count 154 10^3/uL (130-400); RBC 5.52 10^6/uL (4.36-5.78); RDW 12.3 % (11.8-14.1); RDW-SD 40.1 fL; WBC 5.64 10^3/uL (4.4-10.8)
[2022-10-08 20:38] LABS: ALT 51 U/L (16-63); AST 25 U/L (15-37); Albumin 4.4 g/dL (3.4-5.0); Alkaline Phosphatase 82 U/L (46-116); Anion Gap 12.5 mmol/L (3-11); BUN 12 mg/dL (7-18); Bilirubin, Total 0.6 mg/dL (0.2-1.0); CO2 23.5 mmol/L (21.0-32.0); CREATININE 1.2 mg/dL (0.70-1.30); Calcium 8.8 mg/dL (8.5-10.1); Chloride 106 mmol/L (98-107); Glucose 156 mg/dL (74-106); Potassium 4.1 mmol/L (3.5-5.1); Sodium 142 mmol/L (136-145); Total Protein 7.3 g/dL (6.4-8.2); Uric Acid 5.2 mg/dL (3.5-7.2)
[2022-10-08 21:30] LABS: Vitamin D 25 Total 18.6 ng/mL (30-100)
== END 2022-10-08 21:45 | disposition home or self-care (01) ==
LOC: NCHCN 21:44
PROVIDERS: PCP Family Medicine; Visit Provider Family Medicine
DX: I10 Essential (primary) hypertension (principal); K76.0 Fatty (change of) liver, not elsewhere classified; M10.9 Gout, unspecified; E55.9 Vitamin D deficiency, unspecified; D69.6 Thrombocytopenia, unspecified
CPT/HCPCS: 80053; 82306; 85027; 84550

== ENCOUNTER 2023-04-10 20:44 | Emergency (ER) | payer OTHER, SELFPAY ==
[2023-04-10 20:47] VITALS: BP 184/90; PULSE 84; RESP 18; TEMP 36.6; O2SAT 96
--- NOTE | 2023-04-10 21:01 | ED.GENADUL_ITS ---
HPI General Stated Complaint: AnimalBite DESTINI: 4 Date/Time Provider Initiated Documentation: 04/10/23 20:58. HPI Narrative: 42 year-old male presents to ED today by POV/ambulating with his spouse with a chief complaint of cat scratch to L thenar eminence, R-hand dominant, with onset yesterday from his cat. Quality described as noticed red streak up his arm while showering today, no radiation to fever, pain, purulent drainage, swelling to L UE. Severity is described as 0/10. Palliating factors include he did clean the wound aggressively at onset. Provoking factors include nothing specific. Events leading up to the incident/Associated Symptoms: Patients' Tdap is UTD 2021. Patient not anticoagulated. Related Data Home Medications Medication Instructions Recorded Confirmed allopurinol 100 mg tablet 100 mg PO DAILY 05/07/15 04/10/23 amlodipine 5 mg tablet 5 mg PO DAILY 01/12/19 04/10/23 betamethasone valerate 0.1 % 1 applic topical BID PRN 05/19/19 04/10/23 topical ointment metformin 500 mg tablet,extended 500 mg PO DAILY 05/19/19 04/10/23 release 24hr (osmotic) sildenafil 50 mg tablet (Viagra) 50 mg PO DAILY PRN 05/19/19 04/10/23 trazodone 100 mg tablet 100 mg PO QHS 05/19/19 04/10/23 ziprasidone HCl 40 mg capsule 40 mg PO BID 05/19/19 04/10/23 amoxicillin 875 mg-potassium 1 tab PO BID cellulitis 10 days 04/10/23 clavulanate 125 mg tablet #20 tabs azithromycin 250 mg tablet 250 mg PO DAILY 4 days #4 tabs 04/10/23 lisinopril 10 mg tablet 10 mg PO DAILY 04/10/23 04/10/23 Previous Rx's Medication Instructions Recorded amoxicillin 875 mg-potassium 1 tab PO BID cellulitis 10 days 04/10/23 clavulanate 125 mg tablet #20 tabs azithromycin 250 mg tablet 250 mg PO DAILY 4 days #4 tabs 04/10/23 Allergies Allergy/AdvReac Type Severity Reaction Status Date / Time lamotrigine [From Lamictal] Allergy Unverified 04/10/23 20:53 pioglitazone Allergy Unverified 04/10/23 20:53 sertraline [From Zoloft] Allergy Unverified 04/10/23 20:53 Review of Systems All systems reviewed & are unremarkable except as noted in HPI and below PFSH All Active Problems (Updated 04/10/23 @ 21:28 by DYLAN Brown) Lymphadenitis (Acute) Cat scratch of left hand (Acute) Urinary frequency (Acute) Gout (Chronic) HTN (hypertension) (Chronic) GERD (gastroesophageal reflux disease) (Chronic) Diabetes mellitus (Chronic) Bipolar disorder (Chronic) Medical History (Updated 04/10/23 @ 21:28 by DYLAN Brown) Recurrent genital herpes simplex Psoriasis Chronic low back pain Nephrolithiasis Metabolic syndrome Thrombocytopenia Bilateral knee pain Hemorrhoids Hypocalcemia Social History Smoking/Tobacco Use Status: Former Tobacco Use Smoking risk assessment performed?: Yes Alcohol Intake: never Drug use: Daily Substance use type: marijuana Do you feel safe at home: Yes Do you feel safe in your relationship?: Yes Exam Narrative Exam Narrative: GENERAL APPEARANCE: Well-nourished, non-toxic, awake and alert, atraumatic, no acute distress. SKIN: Warm, pink, dry, intact, without rashes/lesions/ulcerations. HEAD: Normocephalic, atraumatic, normal hair distribution for gender/age. EYES: Pupils PERRLA, EOMs intact without nystagmus, normal conjunctiva, no exudates on lids/lashes. ENT: Nares patent, no circumoral cyanosis, no facial swelling NECK: Supple, trachea midline, painless cervical ROM. LUNGS/CHEST: Non-labored respirations, normal A/P diameter, symmetrical expansion, no chest wall deformity HEART (CV/PV): Regular rate, L radial pulse 2+, no peripheral edema, no JVD. ABDOMEN: Soft, non-distended, no guarding. MSK: Normal ROM, no swelling/deformity to bilateral UEs or LEs, moving all extremities without weakness, no cyanosis, spine midline without tenderness, normal curvature. 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 Motor: No focal weakness - strength 5/5 in bilateral UEs and LEs, proximal and distal, symmetric. Sensory: sensation intact to light touch globally. Gait normal: patient ambulated without ataxia into ED room. PSYCH: euthymic, cooperative, pleasant, appropriate speech Course Vital Signs Vital signs: Vital Signs Temperature 36.6 C 04/10/23 20:47 Pulse 84 04/10/23 20:47 Respiratory Rate 18 04/10/23 20:47 Blood Pressure 184/90 H 04/10/23 20:47 Pulse Oximetry 96 04/10/23 20:47 Temperature 36.6 C 04/10/23 20:47 Pulse 84 04/10/23 20:47 Respiratory Rate 18 04/10/23 20:47 Respiratory Effort Normal, Non-Labored 04/10/23 20:55 Blood Pressure 184/90 H 04/10/23 20:47 Blood Pressure Position Sitting 04/10/23 20:47 Pulse Oximetry 96 04/10/23 20:47 Oxygen Delivery Method Room Air 04/10/23 20:47 Oxygen Flow Rate 0 04/10/23 20:47 Pain Level 3 04/10/23 20:47 Medical Decision Making This dictation utilizes [id number] dictation software and may contain unedited grammatical errors. 42 y/o M presents to ED today with a chief complaint of cat scratch to his L thenar eminence yesterday, noticed red streaking up his forearm today. Denies fe ky/pain. Patients' Tdap UTD. Patients' medical history: negative, otherwise healthy. Family and social history: noncontributory. 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 Differential / pathologies of concern include Cat Scratch Disease, Cellulitis, Bacteremia. Diagnostic studies of: -Blood Cx's, discharged with Cx's pending- nontoxic vitals. Interventions of: -Outpatient Rx for Azithromycin and Augmentin for animal bite/scratch cellulitis and cat scratch disease. ED Course/Assessment/Plan: Patient comfortable with discharge with PO antibiotics, counsled on return criteria for s/s of worsening infection- redness/pain/fever/nausea/weakness. Findings not consistent with abscess, sepsis- nontoxic vitals, early in course of possible cellulitis, will need call-back for IV ABX for bacteremia if cultures result positive. Disposition of Cat Scratch of Left Hand, Lymphadenitis. Patient verbalized understanding of the plan and return to ED criteria and engaged in shared decision making. Medical Records Medical records reviewed: Yes I reviewed the patient's medical records. Lab Data Labs: 04/10/23 21:25 Blood Blood Culture - Pending 04/10/23 21:30 Blood Blood Culture - Pending Quality:SDOH Health Related Social Needs: No Data to Display Discharge Plan Disposition Patient Disposition: Home Condition: Stable Discharge Details Clinical Impression: Cat scratch of left hand, Lymphadenitis Primary Care Provider: [facility] ED Provider: Kael Shannon Home Meds and New Rx's Prescriptions: New amoxicillin-pot clavulanate 875-125 mg tablet 1 tab PO BID 10 Days Qty: 20 0RF azithromycin 250 mg tablet 250 mg PO DAILY 4 Days Qty: 4 0RF Rx Instructions: start on day 2 of therapy Continued ziprasidone HCl 40 mg capsule 40 mg PO BID sildenafil [Viagra] 50 mg tablet 50 mg PO DAILY PRN metformin 500 mg tablet extended release 24hr 500 mg PO DAILY trazodone 100 mg tablet 100 mg PO QHS betamethasone valerate 0.1 % ointment 1 applic TP BID PRN allopurinol 100 MG tablet 100 mg PO DAILY amlodipine 5 mg tablet 5 mg PO DAILY lisinopril 10 mg tablet 10 mg PO DAILY Discharge Instructions Instructions: Amoxicillin/Clavulanate Potassium (By mouth), Azithromycin (By mouth), Cellulitis (ED), Cat Scratch Disease (ED) Additional Instructions: You were seen in the emergency department for your cat scratch that occurred yesterday, you notice red streaking up your arm today in the shower. This possibly could be developing infection from this cat scratch and we are starting 2 different antibiotics to cover both cellulitis and cat scratch disease specifically. 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 We also perform blood cultures to make sure that this had not spread to your bloodstream. This will result in 2-3 days. Please return for signs of worsening infection, increasing redness, fever, nausea/weakness. Referrals: [facility] [Primary Care Provider] - Discharge Data Discharge Date/Time-TO BE ENTERED AT DEPARTURE: 04/10/23 21:43
--- NOTE | 2023-04-10 22:09 | NUR.NOTE ---
Pt info sent to Health Officer Syd Quintanilla for a (cat) animal bite.
== END 2023-04-10 21:43 | disposition home or self-care (01) ==
PROVIDERS: Emergency Provider Physician Assistant; PCP Family Medicine
DX: S60.512A Abrasion of left hand, initial encounter (principal); I88.9 Nonspecific lymphadenitis, unspecified; W55.03XA Scratched by cat, initial encounter
CPT/HCPCS: 36415; 87040; 99283

== ENCOUNTER 2023-12-02 22:45 | Emergency (ER) | payer OTHER, SELFPAY ==
[2023-12-02] VITALS (10 sets, daily range): BP systolic 157–200; BP diastolic 90–120; PULSE 62–75; RESP 18–25; TEMP 37.1; O2SAT 94–98
--- NOTE | 2023-12-02 22:45 | RT.EKG_ITS ---
APPROVED REPORT Exam: Resting ECG Reason for Exam: chest pain Patient Location: E HR:75 bpm ECG Measurements Heart Rate 75 AXIS ME 182 P 64 QRSd 101 QRS 49 QT 416 T 26 QTc 465 Conclusion Sinus rhythm...normal P axis, V-rate 60- 99 Physician: no stemi
--- NOTE | 2023-12-02 22:45 | DI.RAD_ITS ---
Exam(s) XR PORTABLE CHEST AP EXAM: XR PORTABLE CHEST AP CLINICAL HISTORY: left chest pain TECHNIQUE: 2D digital imaging was performed. COMPARISON: CR XR CHEST 2V PA LATERAL from 08/19/2019 FINDINGS: LUNGS: Clear. No pleural abnormality seen. HEART: Normal size. AORTA: Normal diameter. BONES: Unremarkable for age. Soft tissues: Unremarkable. IMPRESSION: No acute findings. DATA REPOSITORY: RADIATION DOSE DELIVERED:
--- NOTE | 2023-12-02 23:00 | ED.GENADUL_ITS ---
Discharge Plan Discharge Details Chief Complaint: Chest Pain Primary Care Provider: [facility] ED Provider: Kael Rivero Home Meds and New Rx's Prescriptions: No Action ziprasidone HCl 40 mg capsule 40 mg PO BID sildenafil [Viagra] 50 mg tablet 50 mg PO DAILY PRN metformin 500 mg tablet extended release 24hr 500 mg PO DAILY trazodone 100 mg tablet 100 mg PO QHS betamethasone valerate 0.1 % ointment 1 applic TP BID PRN allopurinol 100 MG tablet 100 mg PO DAILY amlodipine 5 mg tablet 5 mg PO DAILY lisinopril 10 mg tablet 10 mg PO DAILY HPI General Date/Time Provider Initiated Documentation: 12/02/23 22:56 . HPI Narrative: 43-year-old male with past medical history of hypertension, GERD, diabetes, bipolar, gout, tobacco use in the past, now currently just smoking marijuana, and a strong family history of cardiac disease presents today for left-sided chest pain. Patient states that he was getting in a heated discussion with his children when he developed left-sided chest stabbing sensation just below his nipple. It radiates down to the left flank. He denies urinary frequency or hematuria. He denies vomiting or diarrhea. He denies pleuritic chest pain or shortness of breath. No exertional component. Pain has continued for the last hour and a half without any resolution and so he came to the ER for further assessment. He states that in the past he has had small episodes like this before but it is usually self-limited. Additionally over the last month or so he has noticed some intermittent flank discomfort with some bladder spasms that has also been self-limited. He denies any other complaints at this time. Related Data Home Medications ?Medication ?Instructions ?Recorded ?Confirmed allopurinol 100 mg tablet 100 mg PO DAILY 05/07/15 04/10/23 amlodipine 5 mg tablet 5 mg PO DAILY 01/12/19 04/10/23 betamethasone valerate 0.1 % 1 applic topical BID PRN 05/19/19 04/10/23 topical ointment metformin 500 mg tablet,extended 500 mg PO DAILY 05/19/19 04/10/23 release 24hr (osmotic) sildenafil 50 mg tablet (Viagra) 50 mg PO DAILY PRN 05/19/19 04/10/23 trazodone 100 mg tablet 100 mg PO QHS 05/19/19 04/10/23 ziprasidone HCl 40 mg capsule 40 mg PO BID 05/19/19 04/10/23 lisinopril 10 mg tablet 10 mg PO DAILY 04/10/23 04/10/23 Allergies Allergy/AdvReac Type Severity Reaction Status Date / Time lamotrigine (From Lamictal) Allergy Unverified 04/10/23 20:53 pioglitazone Allergy Unverified 04/10/23 20:53 sertraline (From Zoloft) Allergy Unverified 04/10/23 20:53 General Stated Complaint: Chest Pain DESTINI: 3 Review of Systems All systems reviewed & are unremarkable except as noted in HPI and below Exam Narrative Exam Narrative: 1.Const: Well-nourished, Well-developed, appearing stated age 2.Eyes: PERRL, no conjunctival injection, and symmetrical lids. 3.ENT: Atraumatic external nose and ears. Moist MM. Neck: Symmetric, trachea midline, No thyromegaly. 4.CVS: +S1/S2, No murmurs or gallops. Peripheral pulses 2+ and equal in all extremities. Brisk capillary refill in all extremities. 5.RESP: Unlabored respiratory effort. Clear to auscultation bilaterally. No wheezes rales or rhonchi 6.GI: Soft, Nontender/Nondistended, No hepatosplenomegaly. No guarding or rebound. No significant CVA tenderness 7.MSK: Normocephalic/Atraumatic, Extremities w/o deformity or ttp No cyanosis or clubbing, Normal movement of all extremities 8.Skin: Warm, Dry. No rashes or lesions. 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 Sensation grossly intact, no focal neurologic deficits. 10.Psych: (AAO) x3. Appropriate mood and affect Course Vital Signs Vital signs: Vital Signs Temperature 37.1 C 12/02/23 22:53 Pulse 70 12/02/23 22:53 Respiratory Rate 22 12/02/23 22:53 Blood Pressure 200/120 H 12/02/23 22:53 Pulse Oximetry 98 12/02/23 22:53 Temperature 37.1 C 12/02/23 22:53 Temperature Source Temporal Artery Scan 12/02/23 22:53 Pulse 70 12/02/23 22:53 Respiratory Rate 22 12/02/23 22:53 Respiratory Effort Normal, Non-Labored 12/02/23 22:56 Blood Pressure 200/120 H 12/02/23 22:53 Blood Pressure Position Supine 12/02/23 22:53 Pulse Oximetry 98 12/02/23 22:53 Oxygen Delivery Method Room Air 12/02/23 22:53 Oxygen Flow Rate 0 12/02/23 22:53 Medical Decision Making 43-year-old male with past medical history of hypertension, GERD, diabetes, bipolar, gout, tobacco use in the past, now currently just smoking marijuana, and a strong family history of cardiac disease presents today for left-sided chest pain. Patient states that he was getting in a heated discussion with his children when he developed left-sided chest stabbing sensation just below his nipple. It radiates down to the left flank. He denies urinary frequency or hematuria. He denies vomiting or diarrhea. He denies pleuritic chest pain or shortness of breath. No exertional component. Pain has continued for the last hour and a half without any resolution and so he came to the ER for further assessment. He states that in the past he has had small episodes like this before but it is usually self-limited. Additionally over the last month or so he has noticed some intermittent flank discomfort with some bladder spasms that has also been self-limited. He denies any other complaints at this time. Exam demonstrates well-appearing male, no significant reproducible chest wall or flank tenderness. Pulses are equal. Abdomen notably nontender. Vital signs demonstrate hypertension, but no other significant abnormality. Concern for reflux, urolithiasis, less likely cardiac etiology. Pneumothorax is unlikely and PE seems inconsistent with current clinical picture with no tachycardia, hypoxemia or pleuritic chest pain. Will get portable chest x-ray, urinalysis, cardiac workup. We will give full dose aspirin, GI cocktail, and Tylenol. Patient will be signed out to my colleague Dr. Bedoya for follow-up on labs and imaging. If urinalysis is positive for blood, would recommend CT imaging of the abdomen. EKG shows no evidence of STEMI. Quality:SDOH Health Related Social Needs: No Data to Display PFSH All Active Problems Urinary frequency (Acute) Gout (Chronic) HTN (hypertension) (Chronic) GERD (gastroesophageal reflux disease) (Chronic) Diabetes mellitus (Chronic) Bipolar disorder (Chronic) Medical History Recurrent genital herpes simplex Psoriasis Chronic low back pain Nephrolithiasis Metabolic syndrome Thrombocytopenia Bilateral knee pain Hemorrhoids Hypocalcemia Social History Smoking/Tobacco Use Status: Former Tobacco Use Smoking risk assessment performed?: Yes Alcohol Intake: never Drug use: Daily Substance use type: marijuana Do you feel safe at home: Yes Do you feel safe in your relationship?: Yes
[2023-12-02] MEDS: Aspirin 81 MG CHEW 324 MG CH (23:12)
[2023-12-02] MEDS: Acetaminophen 500 MG TAB 1000 MG PO (23:12)
[2023-12-02] MEDS: Lactated Ringers 1,000 ML 1000 ML IV (23:13)
--- NOTE | 2023-12-02 23:13 | ED.GENADUL_ITS ---
Discharge Plan Disposition Patient Disposition: Home Condition: Good Discharge Details Clinical Impression: Chest pain, Muscle pain Primary Care Provider: [facility] ED Provider: Norma Noland Home Meds and New Rx's Prescriptions: No Action ziprasidone HCl 40 mg capsule 40 mg PO BID sildenafil [Viagra] 50 mg tablet 50 mg PO DAILY PRN metformin 500 mg tablet extended release 24hr 500 mg PO DAILY trazodone 100 mg tablet 100 mg PO QHS betamethasone valerate 0.1 % ointment 1 applic TP BID PRN allopurinol 100 MG tablet 100 mg PO DAILY amlodipine 5 mg tablet 5 mg PO DAILY lisinopril 10 mg tablet 10 mg PO DAILY Discharge Instructions Instructions: Chest Pain, Adult ED Additional Instructions: Tylenol and ibuprofen over the counter for pain; follow the directions on the bottle. You can also try head packs and gentle stretching. Call your primary care doctor today to schedule an appointment for within the next 3 days to followup on your visit here. Discuss your blood pressure at that visit as it is high here today. Return to the emergency department for new or worsening symptoms including new/different/worse chest pain, difficultly breathing, feeling like you are going to pass out, or if you have any other concerns. Referrals: [facility] [Primary Care Provider] - Discharge Data Discharge Date/Time-TO BE ENTERED AT DEPARTURE: 12/03/23 03:13 HPI General Date/Time Provider Initiated Documentation: 12/02/23 22:56 . HPI Narrative: 43-year-old male with a past medical history of hypertension, GERD, diabetes, bipolar, presents with left-sided chest pain which radiates to his flank. Nonexertional. Not improved with movement or activity. Not worsened with these either. He denies fever or chills. No other complaints at this time. Related Data Home Medications ?Medication ?Instructions ?Recorded ?Confirmed allopurinol 100 mg tablet 100 mg PO DAILY 05/07/15 12/03/23 amlodipine 5 mg tablet 5 mg PO DAILY 01/12/19 12/03/23 betamethasone valerate 0.1 % 1 applic topical BID PRN 05/19/19 12/03/23 topical ointment metformin 500 mg tablet,extended 500 mg PO DAILY 05/19/19 12/03/23 release 24hr (osmotic) sildenafil 50 mg tablet (Viagra) 50 mg PO DAILY PRN 05/19/19 12/03/23 trazodone 100 mg tablet 100 mg PO QHS 05/19/19 12/03/23 ziprasidone HCl 40 mg capsule 40 mg PO BID 05/19/19 12/03/23 lisinopril 10 mg tablet 10 mg PO DAILY 04/10/23 12/03/23 Allergies Allergy/AdvReac Type Severity Reaction Status Date / Time lamotrigine (From Lamictal) Allergy Unverified 04/10/23 20:53 pioglitazone Allergy Unverified 04/10/23 20:53 sertraline (From Zoloft) Allergy Unverified 04/10/23 20:53 General Stated Complaint: Chest Pain DESTINI: 3 Review of Systems All systems reviewed & are unremarkable except as noted in HPI and below Exam Narrative Exam Narrative: 1.Const: Well-nourished, Well-developed, appearing stated age 2.Eyes: PERRL, no conjunctival injection, and symmetrical lids. 3.ENT: Atraumatic external nose and ears. Moist MM. Neck: Symmetric, trachea midline, No thyromegaly. 4.CVS: +S1/S2, No murmurs or gallops. Peripheral pulses 2+ and equal in all extremities. Brisk capillary refill in all extremities. 5.RESP: Unlabored respiratory effort. Clear to auscultation bilaterally. No wheezes rales or rhonchi 6.GI: Soft, Nontender/Nondistended, No hepatosplenomegaly. No guarding or rebound. 7.MSK: Normocephalic/Atraumatic, Extremities w/o deformity or ttp No cyanosis or clubbing, Normal movement of all extremities 8.Skin: Warm, Dry. No rashes or lesions. 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 Sensation grossly intact, no focal neurologic deficits. 10.Psych: (AAO) x3. Appropriate mood and affect Course Vital Signs Vital signs: Vital Signs Temperature 37.1 C 12/02/23 22:53 Pulse 70 12/02/23 22:53 Respiratory Rate 22 12/02/23 22:53 Blood Pressure 200/120 H 12/02/23 22:53 Pulse Oximetry 98 12/02/23 22:53 Temperature 37.1 C 12/02/23 22:53 Temperature Source Temporal Artery Scan 12/02/23 22:53 Pulse 70 12/02/23 22:53 Respiratory Rate 22 12/02/23 22:53 Respiratory Effort Normal, Non-Labored 12/02/23 22:56 Blood Pressure 200/120 H 12/02/23 22:53 Blood Pressure Position Supine 12/02/23 22:53 Pulse Oximetry 98 12/02/23 22:53 Oxygen Delivery Method Room Air 12/02/23 22:53 Oxygen Flow Rate 0 12/02/23 22:53 Medical Decision Making 43-year-old male with a past medical history of hypertension, GERD, diabetes, bipolar, presents with left-sided chest pain which radiates to his flank. Nonexertional. Not improved with movement or activity. Not worsened with these either. He denies fever or chills. No other complaints at this time. Exam demonstrates well-appearing male, no acute distress. Will evaluate for concerning etiologies, monitor closely reassess. Patient will be given aspirin GI cocktail Tylenol and imaging. Patient will be signed out to my colleague for follow-up on these. Quality:SDOH Health Related Social Needs: No Data to Display PFSH All Active Problems Muscle pain (Acute) Chest pain (Acute) Urinary frequency (Acute) Gout (Chronic) HTN (hypertension) (Chronic) GERD (gastroesophageal reflux disease) (Chronic) Diabetes mellitus (Chronic) Bipolar disorder (Chronic) Medical History Recurrent genital herpes simplex Psoriasis Chronic low back pain Nephrolithiasis Metabolic syndrome Thrombocytopenia Bilateral knee pain Hemorrhoids Hypocalcemia Social History Smoking/Tobacco Use Status: Former Tobacco Use Smoking risk assessment performed?: Yes Alcohol Intake: never Drug use: Daily Substance use type: marijuana Do you feel safe at home: Yes Do you feel safe in your relationship?: Yes Sign Out Sign Out Data: Sign Out Comment: Chest pain, left flank pain, follow-up on troponins and imaging and UA. Last updated by Kael Rivero DO at 12/02/23 23:33
[2023-12-02 23:16] LABS: Abs Immature Grans 0.04 10^3/uL (0.0-0.06); Absolute Basophil Count 0.05 10^3/uL (0.0-0.2); Absolute Eosinophil Count 0.14 10^3/uL (0.0-0.7); Absolute Lymphocyte Count 1.42 10^3/uL (1.2-3.4); Absolute Neutrophil Count 4.65 10^3/uL (1.2-6.7); Basophils % 0.7 %; HCT 45.8 % (40.0-50.0); HGB 15.6 g/dL (13.5-17.5); Immature Grans % 0.6 %; Lymphocytes % 20.6 %; MCH 30.3 pg (27.0-33.0); MCHC 34.1 % (32.0-36.0); MCV 89 fL (80-95); Monocytes % 8.7 %; Neutrophils % 67.4 %; Platelet Count 141 10^3/uL (130-400); RBC 5.15 10^6/uL (4.36-5.78); RDW 12.4 % (11.8-14.1); RDW-SD 40.6 fL
[2023-12-02 23:21] LABS: Bilirubin Negative (Negative); Blood Trace-intact (Negative); Clarity Clear (Clear); Glucose Negative (Negative); Ketones Negative (Negative); Leukocyte Esterase Negative (Negative); Nitrite Negative (Negative); Specific Gravity 1.025 (1.005-1.025); Urobilinogen 0.2 mg/dL (Up to 0.2)
[2023-12-02 23:26] LABS: Epithelial Cells Negative HPF (Negative); RBC 0-2 HPF (0-2); WBC 0-2 HPF (0-5)
[2023-12-02 23:27] LABS: Bacteria Negative HPF (Negative); C & S Indicated? No; Casts Negative LPF (Negative); Crystals Negative HPF (Negative); Mucus Moderate (Negative)
[2023-12-02 23:29] LABS: ALT 60 U/L (16-63); AST 23 U/L (15-37); Albumin 4.1 g/dL (3.4-5.0); Alkaline Phosphatase 82 U/L (46-116); BUN 11 mg/dL (7-18); Bilirubin, Total 0.49 mg/dL (0.2-1.0); CREATININE 1.1 mg/dL (0.70-1.30); Calcium 8.9 mg/dL (8.5-10.1); Chloride 105 mmol/L (98-107); Estimated GFR 86.49 (mL/min/1.73m2); Glucose 94 mg/dL (74-106); Potassium 3.8 mmol/L (3.5-5.1); Sodium 141 mmol/L (136-145); Total Protein 7.2 g/dL (6.4-8.2); Troponin I < 50 ng/L (< or =60)
[2023-12-03] VITALS (31 sets, daily range): BP systolic 146–173; BP diastolic 81–98; PULSE 47–69; RESP 13–26; O2SAT 93–96
--- NOTE | 2023-12-03 00:48 | ED.PROG_ITS ---
Date of service: 12/03/23 Time of Service: 00:48 Medical Decision Making This patient was signed out to me. Please see previous notes for H&P and initial eval. In brief, 43yo M presenting with left sided chest pain which radiates to his flank. EKG reassuring. Given ASA, GI cocktail, tylenol. Signed out pending labs, UA, CXR. Labs reviewed as below, CBC reassuring with no leukocytosis or anemia, CMP with no actionable abnormalities, Mg normal, initial troponin negative. UA with trace blood, micro without hematuria. Would not pursue CT for nephrolithiasis. CXR independently reviewed, no focal pneumonia or pneumothorax on my view; agree with radiology read below. On reassessment patient reports pain has improved, is still present if he palpates the area. Left lateral chest well with reproducible tenderness to palpation, left lumbar paraspinal muscle spasm without significant tenderness present in area patient reports pain was radiating to earlier. Repeat troponin normal. Suspect MSK etiology. HEART score 2; low risk. Patient would like to go home which is reasonable. Will dose of toradol prior to discharge, advise close PCP followup including discussion of his blood pressure. Discharged home; discharge instructions and return precautions were reviewed with patient who verbalized understanding. All questions were answered and he is in full agreement with the plan. Imaging Data Radiologic Study: Imaging: X-Ray Radiologist's impression: IMPRESSION: No acute findings. Lab Data Lab results reviewed: Yes I reviewed the patient's lab results. Labs: Laboratory Tests Range/Units 12/02/23 12/02/23 12/03/23 23:02 23:15 02:16 WBC (4.4-10.8) 10^3/uL 6.90 RBC (4.36-5.78) 10^6/uL 5.15 Hgb (13.5-17.5) g/dL 15.6 Hct (40.0-50.0) % 45.8 MCV (80-95) fL 89 MCH (27.0-33.0) pg 30.3 MCHC (32.0-36.0) % 34.1 RDW (11.8-14.1) % 12.4 Plt Count (130-400) 10^3/uL 141 MPV (8.0-11.0) fL 11.0 Immature Gran % % 0.6 Neutrophils % % 67.4 Lymphocytes % % 20.6 Monocytes % % 8.7 Eosinophils % % 2.0 Basophils % % 0.7 Nucleated RBC % (0.0-0.3) % 0.0 Absolute Neutrophils (1.2-6.7) 10^3/uL 4.65 Absolute Lymphocytes (1.2-3.4) 10^3/uL 1.42 Absolute Monocytes (0.1-0.8) 10^3/uL 0.60 Absolute Eosinophils (0.0-0.7) 10^3/uL 0.14 Absolute Basophils (0.0-0.2) 10^3/uL 0.05 Sodium (136-145) mmol/L 141 Potassium (3.5-5.1) mmol/L 3.8 Chloride (98-107) mmol/L 105 Carbon Dioxide (21.0-32.0) mmol/L 26.0 Anion Gap (3-11) mmol/L 10.0 BUN (7-18) mg/dL 11 Creatinine (0.70-1.30) mg/dL 1.1 Est GFR (CKD-EPI 2020) (mL/min/1.73m2) 86.49 Glucose (74-106) mg/dL 94 Calcium (8.5-10.1) mg/dL 8.9 Magnesium (1.8-2.4) mg/dL 2.0 Total Bilirubin (0.2-1.0) mg/dL 0.49 AST (15-37) U/L 23 ALT (16-63) U/L 60 Alkaline Phosphatase (46-116) U/L 82 Troponin I (< or =60) ng/L < 50 < 50 Total Protein (6.4-8.2) g/dL 7.2 Albumin (3.4-5.0) g/dL 4.1 Urine Color (Yellow) Yellow Urine Clarity (Clear) Clear Urine pH (5-8) 6.0 Ur Specific [place] (1.005-1.025) 1.025 Urine Protein (Neg-Trace) mg/dL Negative Urine Ketones (Negative) mg/dL Negative Urine Blood (Negative) Trace-intact H Urine Nitrite (Negative) Negative Urine Bilirubin (Negative) Negative Urine Urobilinogen (Up to 0.2) mg/dL 0.2 Ur Leukocyte Esterase (Negative) Negative Urine RBC (0-2) HPF 0-2 Urine WBC (0-5) HPF 0-2 Ur Epithelial Cells (Negative) HPF Negative Urine Crystals (Negative) HPF Negative Urine Bacteria (Negative) HPF Negative Urine Casts (Negative) LPF Negative Urine Mucus (Negative) Moderate Ur Culture Indicated? No Urine Glucose (Negative) mg/dL Negative Quality:SDOH Health Related Social Needs: No Data to Display Sign Out Sign Out Data: Sign Out Comment: Chest pain, left flank pain, follow-up on troponins and imaging and UA. Last updated by Kael Rivero DO at 12/02/23 23:33 Discharge Plan Disposition Patient Disposition: Home Condition: Good Discharge Details Clinical Impression: Chest pain, Muscle pain Primary Care Provider: Ramez House ED Provider: Norma Noland Home Meds and New Rx's Prescriptions: No Action ziprasidone HCl 40 mg capsule 40 mg PO BID sildenafil [Viagra] 50 mg tablet 50 mg PO DAILY PRN metformin 500 mg tablet extended release 24hr 500 mg PO DAILY trazodone 100 mg tablet 100 mg PO QHS betamethasone valerate 0.1 % ointment 1 applic TP BID PRN allopurinol 100 MG tablet 100 mg PO DAILY amlodipine 5 mg tablet 5 mg PO DAILY lisinopril 10 mg tablet 10 mg PO DAILY Discharge Instructions Instructions: Chest Pain, Adult ED Additional Instructions: Tylenol and ibuprofen over the counter for pain; follow the directions on the bottle. You can also try head packs and gentle stretching. Call your primary care doctor today to schedule an appointment for within the next 3 days to followup on your visit here. Discuss your blood pressure at that visit as it is high here today. Return to the emergency department for new or worsening symptoms including new/different/worse chest pain, difficultly breathing, feeling like you are going to pass out, or if you have any other concerns. Referrals: Ramez House [Primary Care Provider] -
[2023-12-03 02:49] LABS: Troponin I < 50 ng/L (< or =60)
[2023-12-03] MEDS: Ketorolac 15 MG/ML VIAL IVP (03:07)
== END 2023-12-03 03:13 | disposition home or self-care (01) ==
LOC: ER 12-03 03:14
PROVIDERS: Student in an Organized Health Care Education/Training Program; Emergency Provider Student in an Organized Health Care Education/Training Program; PCP Family Medicine
DX: R07.9 Chest pain, unspecified (principal); M79.10 Myalgia, unspecified site; I10 Essential (primary) hypertension; Z82.49 Family history of ischemic heart disease and other diseases of the circulatory system
CPT/HCPCS: 00123; 36415; 80053; 93005; 96361; 96374; 99284; 71045; 81003; 81015; 83735; 84484; 85025; 93010; 99283; J1885

== ENCOUNTER 2024-01-08 02:02 | Outpatient (CLI) | payer OTHER, SELFPAY ==
--- OUTSIDE RECORDS SUMMARY | 2024-01-08 02:04 | XMS_ITS | Encounter Summary ---
Author Organization [facility] Address [address] [place] [address] Care Team Providers Care Carroting Machine Operator Name Role Phone Unavailable Primary Care Provider Unavailabl e Encounter Details Date Type Department Care Team (Latest Contact Info) Description 07/08/2017 10:18 EDT - 07/08/2017 23:59 EDT Hospital Encounter [address] [address] Unknown, Provider, Discharge Disposition: Home or Self Care Social History Tobacco Use Types Packs/Day Years Used Date Smoking Tobacco: Never Assessed Sex and Gender Information Value Date Recorded Sex Assigned at Not on file Gender Identity Not on file Sexual Orientation Not on file documented as of this encounter Discharge Disposition Disposition Code Departure Means Destination Home or Self Long-Term documented in this encounter Plan of Treatment Not on file documented as of this encounter Visit Diagnoses Not on filedocumented in this encounter
--- OUTSIDE RECORDS SUMMARY | 2024-01-08 02:04 | XMS_ITS | Referral Summary ---
Author Organization [facility] Address [address] [place] [address] Care Team Providers Care Social Security Assessor Name Role Phone Unknown, Provider Primary Care Provider [phone] Social History Tobacco Use Types Packs/Day Years Used Date Smoking Tobacco: Never Assessed Interpersonal Safety Answer Date Record ed Physically Hurt Never 11/07/2019 Verbally Threaten Not on file 11/07/2019 Sex and Gender Information Value Date Recorded Sex Assigned at Not on file Gender Identity Not on file Sexual Orientation Not on file Plan of Treatment Not on file Care Teams Social Security Assessor Relationship Specialty Start Date End Date Unknown, Provider, PCP - General 07/09/17
--- OUTSIDE RECORDS SUMMARY | 2024-01-08 02:04 | XMS_ITS | Clinical Summary ---
Author Organization [facility] Address [address] [place] [address] Care Team Providers Care Costume Shop Manager Name Role Phone Unknown, Provider Primary Care Provider Social History Tobacco Use Types Packs/Day Years Used Date Smoking Tobacco: Never Assessed Interpersonal Safety Answer Date Record ed Physically Hurt Never 11/07/2019 Verbally Threaten Not on file 11/07/2019 Sex and Gender Information Value Date Recorded Sex Assigned at Not on file Gender Identity Not on file Sexual Orientation Not on file Plan of Treatment Health Maintenance Due Date Last Done Comments Hepatitis C Screen 1980 Hepatitis B Vaccine (1 of 3 - 19+ 3-dose series) 06/15 COVID-19 Vaccine ( season) 2022 Care Teams Costume Shop Manager Relationship Specialty Start Date End Date Unknown, Provider, PCP - General 07/09/17
--- OUTSIDE RECORDS SUMMARY | 2024-01-08 02:04 | XMS_ITS | Encounter Summary ---
Author Organization [facility] Address [address] [place] [address] Care Team Providers Care Cone Trucker Name Role Phone Unknown, Provider Primary Care Provider [phone] Encounter Details Date Type Department Care Team (Late st Contact Info) Description 07/08/2017 Results Only [facility] [phone] Dorothy House MD [address] [place] [address] Social History Tobacco Use Types Packs/Day Years Used Date Smoking Tobacco: Never Assessed Sex and Gender Information Value Date Recorded Sex Assigned at Not on file Gender Identity Not on file Sexual Orientation Not on file documented as of this encounter Plan of Treatment Not on file documented as of this encounter Procedures Procedure Name Priority Date/Time Associated Diagnosis Comments SURGICAL PATHOLOGY Routine 07/08/2017 16 :34 EDT documented in this encounter Results * SURGICAL PATHOLOGY (07/08/2017 16:34 EDT) Pathology Report: SURGICAL PATHOLOGY REPORT Reports generated via electronic interface contain original data; however they are lacking the format of the original report. Caution should be taken when reading/interpret ing unformatted reports. Name: ? ENA HARRIS ? Accession #: ? [id number] ? : ? 1980 (Age: 37) ??M ? Collect Date: ? 07/08/2017 ? Location: ? [facility] ? Receive Date: ? 07/09/2017 ? Provider: DOROTHY HOUSE MD Copy to: ? Final Pathologic Diagnosis: SKIN OF THUMB, LEFT, SHAVE BIOPSY: - Pyogenic granuloma. Microscopic Description: There is a dome-shaped papule formed by a proliferation of small vascular channels that has a lobular architecture. ??The vessels are lined by an attenuated endothelium. ??Some of the vessels are congested. ??The overlying epidermis has a diminished rete ridge pattern. ??(Dr. Urbano)/[facility] Document reviewed and electronically signed by: DANIEL URBANO MD Report ??Date: 07/11/2017 12:00 By the signature above, the attending physician certifies that he/she has personally conducted a gross and/or microscopic examination of the described specimens and rendered or confirmed the above diagnosis. Specimen(s) Received: Shave biopsy L thumb Clinical History: Pyogenic granuloma Gross Description: ? Received in formalin labelled with proper patient identification (initials D, D) and left thumb is a one firm to rubbery nodular tissue, 0.6 x 0.4 x 0.4 cm. The apparent skin surface is dull brown. The margin is inked. Bisected and entirely submitted in 1. DYLAN Cuellar (ASCP) 07/09/2017 5:00 PM End of Report [facility] 07/08/2017 16:3 4 EDT 07/09/2017 16:34 EDT Dorothy House MD PATHOLOGY ORDERABLES [facility] [address] [place] [address] documented in this encounter Visit Diagnoses Not on filedocumented in this encounter Care Teams Cone Trucker Relationship Specialty Start Date End Date Unknown, Provider, PCP - General 07/09/17 documented as of this encounter
[2024-01-08 15:32] LABS: Abs Immature Grans 0.04 10^3/uL (0.0-0.06); Absolute Basophil Count 0.03 10^3/uL (0.0-0.2); Absolute Eosinophil Count 0.14 10^3/uL (0.0-0.7); Absolute Monocyte Count 0.49 10^3/uL (0.1-0.8); Absolute Neutrophil Count 4.29 10^3/uL (1.2-6.7); Basophils % 0.5 %; Eosinophils % 2.1 %; HCT 46.6 % (40.0-50.0); HGB 15.7 g/dL (13.5-17.5); Immature Grans % 0.6 %; Lymphocytes % 24.3 %; MCH 29.7 pg (27.0-33.0); MCHC 33.7 % (32.0-36.0); MCV 88 fL (80-95); MPV 10.7 fL (8.0-11.0); Monocytes % 7.4 %; Neutrophils % 65.1 %; Platelet Count 145 10^3/uL (130-400); RBC 5.29 10^6/uL (4.36-5.78); RDW 12.2 % (11.8-14.1); RDW-SD 39.2 fL; WBC 6.59 10^3/uL (4.4-10.8)
[2024-01-08 16:18] LABS: Calculated LDL 99 mg/dL (<100); Cholesterol 215 mg/dL (<200); HDL Cholesterol 40 mg/dL (40-60); Triglyceride 383 mg/dL (<150)
== END 2024-01-08 02:03 | disposition home or self-care (01) ==
LOC: LBO 02:03
PROVIDERS: PCP Student in an Organized Health Care Education/Training Program; Visit Provider Student in an Organized Health Care Education/Training Program
DX: F31.9 Bipolar disorder, unspecified (principal)
CPT/HCPCS: 36415; 80061; 85025

== ENCOUNTER 2024-05-24 16:00 | Outpatient (REF) | payer OTHER, SELFPAY ==
[2024-05-24 18:38] LABS: Abs Immature Grans 0.02 10^3/uL (0.0-0.06); Absolute Basophil Count 0.05 10^3/uL (0.0-0.2); Absolute Eosinophil Count 0.16 10^3/uL (0.0-0.7); Absolute Lymphocyte Count 1.45 10^3/uL (1.2-3.4); Basophils % 0.7 %; Eosinophils % 2.3 %; HCT 46.2 % (40.0-50.0); HGB 15.5 g/dL (13.5-17.5); Immature Grans % 0.3 %; Lymphocytes % 20.5 %; MCH 29.4 pg (27.0-33.0); MCHC 33.5 % (32.0-36.0); MCV 88 fL (80-95); MPV 11.5 fL (8.0-11.0); Monocytes % 8.5 %; Neutrophils % 67.7 %; Platelet Count 170 10^3/uL (130-400); RBC 5.27 10^6/uL (4.36-5.78); RDW 12.6 % (11.8-14.1); RDW-SD 40.7 fL; WBC 7.08 10^3/uL (4.4-10.8)
[2024-05-24 18:39] LABS: ALT 44 U/L (16-63); AST 19 U/L (15-37); Alkaline Phosphatase 87 U/L (46-116); Anion Gap 10.5 mmol/L (3-11); BUN 15 mg/dL (7-18); Bilirubin, Total 0.34 mg/dL (0.2-1.0); CO2 26.5 mmol/L (21.0-32.0); CREATININE 1.3 mg/dL (0.70-1.30); Calcium 8.8 mg/dL (8.5-10.1); Chloride 107 mmol/L (98-107); Estimated GFR 70.78 (mL/min/1.73m2); Glucose 108 mg/dL (74-106); Potassium 3.8 mmol/L (3.5-5.1); Sodium 144 mmol/L (136-145); Total Protein 6.9 g/dL (6.4-8.2)
[2024-05-24 19:20] LABS: Hemoglobin A1C 5.4 % (<5.7)
[2024-05-26 12:11] LABS: Chlamydia Result Negative (Negative); GC Result Negative (Negative)
== END 2024-05-24 16:01 | disposition home or self-care (01) ==
LOC: NCHCN 16:00
PROVIDERS: PCP Student in an Organized Health Care Education/Training Program; Visit Provider Student in an Organized Health Care Education/Training Program
DX: R73.03 Prediabetes (principal); I10 Essential (primary) hypertension; Z11.3 Encounter for screening for infections with a predominantly sexual mode of transmission
CPT/HCPCS: 80053; 87491; 87591; 83036; 85025

== ENCOUNTER 2024-07-10 18:04 | Emergency (ER) | payer OTHER, SELFPAY ==
[2024-07-10 18:09] VITALS: BP 174/100; PULSE 106; RESP 24; TEMP 36.7; O2SAT 98
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
[2024-07-10] MEDS: fentaNYL 100 MCG/2 ML VIAL 50 MCG IVP ×2 (18:29→19:05)
[2024-07-10] MEDS: ACETAMINOPHEN 1,000 MG/100 ML BAG 400 MG IVPB (18:29)
[2024-07-10] MEDS: Silver sulfaDIAZINE 1% 25 GM TUBE TP (18:30)
[2024-07-10 19:46] VITALS: BP 176/97; PULSE 90; RESP 16; O2SAT 96
== END 2024-07-10 19:46 | disposition home or self-care (01) ==
PROVIDERS: Emergency Provider Emergency Medicine; PCP Student in an Organized Health Care Education/Training Program
DX: T25.222A Burn of second degree of left foot, initial encounter (principal); T23.102A Burn of first degree of left hand, unspecified site, initial encounter; T31.0 Burns involving less than 10% of body surface; I10 Essential (primary) hypertension; E11.9 Type 2 diabetes mellitus without complications; Z79.84 Long term (current) use of oral hypoglycemic drugs; Z87.891 Personal history of nicotine dependence; X12.XXXA Contact with other hot fluids, initial encounter; Y93.89 Activity, other specified; Y92.89 Other specified places as the place of occurrence of the external cause
CPT/HCPCS: 16020; 99283; J0131; J3010

== ENCOUNTER 2024-11-15 13:21 | Outpatient (CLI) | payer OTHER, SELFPAY ==
--- NOTE | 2024-11-15 13:15 | RT.EKG_ITS ---
APPROVED REPORT Exam: Resting ECG Reason for Exam: chest discomfort Patient Location: O HR:85 bpm ECG Measurements Heart Rate 85 AXIS UT 173 P 66 QRSd 103 QRS 62 QT 509 T 21 QTc 606 Conclusion Sinus rhythm...normal P axis, V-rate 50- 99 Probable left atrial enlargement...P >50mS, <-0.10mV V1 Prolonged QT interval...QTc >500mS Baseline wander in lead(s) V2,V3
== END 2024-11-15 13:22 | disposition home or self-care (01) ==
LOC: DI.CM 13:21
PROVIDERS: PCP Student in an Organized Health Care Education/Training Program; Visit Provider Family Medicine
DX: R07.89 Other chest pain (principal); I51.7 Cardiomegaly
CPT/HCPCS: 93010

== ENCOUNTER 2024-12-04 11:48 | Emergency (ER) | payer OTHER, SELFPAY ==
[2024-12-04 11:49] VITALS: BP 189/94; PULSE 77; RESP 18; TEMP 36.8; O2SAT 98
--- NOTE | 2024-12-04 12:14 | W.ED.GENAD ---
Discharge Plan Disposition Patient Disposition: Home Discharge Details Clinical Impression: Local reaction to hymenoptera sting, Elevated blood pressure reading with diagnosis of hypertension Primary Care Provider: Ravindra Bird ED Provider: Ramez Reynolds Home Meds and New Rx's Prescriptions: Continued ziprasidone HCl 20 mg capsule 20 mg PO BID Qty: 14 0RF Rx Instructions: give with food (meal/snack) metformin 500 mg tablet extended release 24hr 500 mg PO DAILY trazodone 100 mg tablet 100 mg PO QHS betamethasone valerate 0.1 % ointment 1 applic TP BID PRN allopurinol 100 MG tablet 100 mg PO DAILY amlodipine 5 mg tablet 5 mg PO DAILY lisinopril 10 mg tablet 10 mg PO DAILY Discharge Instructions Additional Instructions: You were seen in the emergency department for your bee sting. You received steroids and a medicine to treat your itching. As we discussed please return to the emergency department if you develop significant worsening swelling pain or streaking signs of infection. Otherwise please follow-up with your primary care provider as needed next week. If you have persistent itching you may take [id number] cetirizine as needed. Your blood pressure was elevated in the emergency department. Please follow-up with your primary care provider to discuss your blood pressure management. For your pain please take medications as follows: 1. Take acetaminophen (Tylenol), 1,000 mg (two 500 mg tabs) every 6 hours HPI General Date/Time Provider Initiated Documentation: 12/04/24 12:03. HPI Narrative: MDM This is a quite well-appearing normothermic and not tachycardic 44-year-old [id number] diabetic with localized reaction to hymenoptera sting for which patient will receive steroids, cetirizine, discharged with empiric trial of expectant outpatient management. No significant erythema to suggest cellulitis. No fluctuance to suggest abscess. Right foot warm and well-perfused so I am not concerned for critical limb ischemia. No pain out of proportion to suggest necrotizing soft tissue infection. No shortness of breath or throat swelling nausea vomiting nor generalized rash to suggest anaphylaxis so no occasion for epinephrine. Patient I discussed with his that if you develop streaking signs of infection or any increasing pain he should return to the emergency department. Otherwise I advised rest and elevation. Patient understood his return indications and was discharged with empiric trial of expectant outpatient management. Patient's blood pressure was elevated on arrival. It was rechecked without intervention. It was still elevated. I advised PCP follow-up this patient is on both lisinopril and amlodipine. HPI This is a patient with a history of type 2 diabetes presenting with a right foot sting. He is accompanied by his . Three days ago, the patient was stung on his right foot. Since then, he has developed a bump at the site of the sting, which is causing itching. The patient reports no difficulty in moving the foot. He also reports no difficulty breathing, throat swelling, nausea, or vomiting. The patient has never used an EpiPen and has been stung by bees numerous times without any adverse reactions. Exam General: Well-appearing in no acute distress speaking in complete sentences. Head: Normocephalic, atraumatic. Eye: Extraocular eye movements intact. No conjunctival injection. No scleral icterus. Ear, nose, mouth, throat: Grossly normal inspection. Normal voice, handling secretions normally. Neck: Trachea midline. Cardiovascular: Well-perfused distal extremities. Respiratory: Nonlabored respiration. Gastrointestinal: Nondistended abdomen. Musculoskeletal: On the plantar surface of the right distal foot there is a very mildly erythematous and tender area consistent with recent hymenoptera sting. No fluctuance. Cap refill less than 2 seconds in right toes. 5 out of 5 strength right foot dorsi and plantarflexion. No obvious retained stinger. No streaking signs of infection. Skin: Normal for age and race, grossly normal temperature and turgor. No acute rash. Neurologic: Alert and appropriate, no apparent acute deficits. Psychiatric: Mood and manner are appropriate. Grooming and personal hygiene are appropriate. Related Data Home Medications ?Medication ?Instructions ?Recorded ?Confirmed allopurinol 100 mg tablet 100 mg PO DAILY 05/07/15 12/04/24 amlodipine 5 mg tablet 5 mg PO DAILY 01/12/19 12/04/24 betamethasone valerate 0.1 % 1 applic topical BID PRN 05/19/19 12/04/24 topical ointment metformin 500 mg tablet,extended 500 mg PO DAILY 05/19/19 12/04/24 release 24hr (osmotic) trazodone 100 mg tablet 100 mg PO QHS 05/19/19 12/04/24 lisinopril 10 mg tablet 10 mg PO DAILY 04/10/23 12/04/24 ziprasidone HCl 20 mg capsule 20 mg PO BID #14 caps 11/15/24 12/04/24 Previous Rx's ?Medication ?Instructions ?Recorded ziprasidone HCl 20 mg capsule 20 mg PO BID #14 caps 11/15/24 Allergies Allergy/AdvReac Type Severity Reaction Status Date / Time lamotrigine (From Lamictal) Allergy rash Unverified 12/04/24 11:53 pioglitazone Allergy rash Verified 12/04/24 11:53 sertraline (From Zoloft) Allergy Agitation Verified 12/04/24 11:53 General Stated Complaint: InsectBite DESTINI: 4 Course Vital Signs Vital signs: Vital Signs Temperature 36.8 C 12/04/24 11:49 Pulse 77 12/04/24 11:49 Respiratory Rate 18 12/04/24 11:49 Blood Pressure 189/94 H 12/04/24 11:49 Pulse Oximetry 98 12/04/24 11:49 Temperature 36.8 C 12/04/24 11:49 Temperature Source Oral 12/04/24 11:49 Pulse 77 12/04/24 11:49 Respiratory Rate 18 12/04/24 11:49 Blood Pressure 189/94 H 12/04/24 11:49 Pulse Oximetry 98 12/04/24 11:49 Pain Level 0 12/04/24 11:49 PFSH All Active Problems (Updated 12/04/24 @ 12:18 by Ramez Reynolds MD) Elevated blood pressure reading with diagnosis of hypertension (Acute) Local reaction to hymenoptera sting (Acute) Prolongation of QRS complex on electrocardiography (Acute ~11/15/24) Urinary frequency (Acute) Gout (Chronic) HTN (hypertension) (Chronic) GERD (gastroesophageal reflux disease) (Chronic) Diabetes mellitus (Chronic) Bipolar disorder (Chronic) Medical History (Updated 12/04/24 @ 12:18 by Ramez Reynolds MD) Recurrent genital herpes simplex Psoriasis Chronic low back pain Nephrolithiasis Metabolic syndrome Thrombocytopenia Bilateral knee pain Hemorrhoids Hypocalcemia Family History (Updated 11/15/24 @ 13:44 by Cathy Rose MD) Maternal Grandfather Heart disease Social History (Updated 11/15/24 @ 13:44 by Cathy Rose MD) Smoking/Tobacco Use Status: Current every day Tobacco Type: e-cigarettes Smoking risk assessment performed?: Yes Alcohol Intake: never Drug use: Daily Substance use type: marijuana Do you feel safe at home: Yes Do you feel safe in your relationship?: Yes
[2024-12-04] MEDS: Cetirizine 10 MG TAB PO (12:16)
[2024-12-04] MEDS: Dexamethasone 4 MG TAB 8 MG PO (12:16)
[2024-12-04 12:21] VITALS: BP 163/96; PULSE 75; RESP 18; O2SAT 98
== END 2024-12-04 12:29 | disposition home or self-care (01) ==
PROVIDERS: Emergency Provider Emergency Medicine; PCP Student in an Organized Health Care Education/Training Program
DX: T63.481A Toxic effect of venom of other arthropod, accidental (unintentional), initial encounter; R03.0 Elevated blood-pressure reading, without diagnosis of hypertension; L53.8 Other specified erythematous conditions; L29.89 Other pruritus
CPT/HCPCS: 99283 ×2; J8540

== ENCOUNTER 2025-01-18 13:10 | Outpatient (REF) | payer OTHER, SELFPAY ==
[2025-01-18 16:25] LABS: Abs Immature Grans 0.02 10^3/uL (0.0-0.06); HCT 44.7 % (40.0-50.0); HGB 14.9 g/dL (13.5-17.5); Immature Grans % 0.3 %; MCH 29.2 pg (27.0-33.0); MCHC 33.3 % (32.0-36.0); MCV 88 fL (80-95); MPV 11.9 fL (8.0-11.0); Platelet Count 145 10^3/uL (130-400); RBC 5.11 10^6/uL (4.36-5.78); RDW 12.2 % (11.8-14.1); RDW-SD 39.0 fL; WBC 5.92 10^3/uL (4.4-10.8)
[2025-01-18 16:40] LABS: Hemoglobin A1C 5.6 % (<5.7)
[2025-01-18 17:14] LABS: Anion Gap 13.5 mmol/L (3-11); BUN 14 mg/dL (7-18); CO2 23.5 mmol/L (21.0-32.0); Calcium 8.9 mg/dL (8.5-10.1); Chloride 106 mmol/L (98-107); Estimated GFR 96.37 (mL/min/1.73m2); Glucose 103 mg/dL (74-106); Potassium 4.1 mmol/L (3.5-5.1); Sodium 143 mmol/L (136-145); TSH 0.78 uIU/mL (0.36-3.74)
== END 2025-01-18 13:11 | disposition home or self-care (01) ==
LOC: NCHCN 13:10
PROVIDERS: PCP Student in an Organized Health Care Education/Training Program; Visit Provider Student in an Organized Health Care Education/Training Program
DX: R73.03 Prediabetes (principal); I10 Essential (primary) hypertension
CPT/HCPCS: 80048; 83036; 84443; 85025